=== PATIENT | female | born 1960 | race Two or more races ===

== ENCOUNTER 2022-11-09 12:25 | Emergency (ER) | payer SELFPAY ==
[2022-11-09 12:33] VITALS: BP 125/82; PULSE 79; RESP 18; TEMP 36.7; O2SAT 99; BMI 29.5
== END 2022-11-09 15:06 | disposition left against medical advice (07) ==
PROVIDERS: Emergency Provider Emergency Medicine
DX: Z53.21 Procedure and treatment not carried out due to patient leaving prior to being seen by health care provider (principal)

== ENCOUNTER 2023-01-05 09:31 | Outpatient (OUT) | payer SELFPAY ==
[2023-01-05 09:48] LABS: Basophils Percent Auto 0.3 % (0.2-2.0); Eosinophils Percent Auto 0.9 % (0.9-7.0); Hematocrit 44.8 % (36.0-48.0); Hemoglobin 13.8 g/dL (12.0-16.0); Immature Granulocytes Abs Auto 0.01 10^3/uL (0.00-0.03); Immature Granulocytes Pct Auto 0.3 % (0.0-0.5); Lymphocytes Absolute Auto 1.6 10^3/uL (1.2-3.8); Lymphocytes Percent Auto 45.7 % (20.5-60.0); Mean Corpuscular HGB Conc 30.8 g/dL (29.9-35.2); Mean Corpuscular Hemoglobin 26.2 pg (26.7-34.0); Mean Platelet Volume 10.4 fL (9.5-13.5); Monocytes Absolute Auto 0.3 10^3/uL (0.3-0.8); Monocytes Percent Auto 7.6 % (1.7-12.0); Neutrophils Absolute Auto 1.5 10^3/uL (1.4-6.5); Neutrophils Percent Auto 45.2 % (43.0-75.0); Platelet Count 183 10^3/uL (150-450); Red Blood Count 5.27 10^6/uL (4.20-5.40); White Blood Count 3.4 10^3/uL (4.0-11.0)
[2023-01-05 10:10] LABS: Estimated Average Glucose 134 mg/dL; Glycohemoglobin A1C 6.3 % (4.5-6.2)
[2023-01-05 10:51] LABS: Chol HDL Ratio 5.4; Cholesterol 279 mg/dL (<=200); HDL Cholesterol 52 mg/dL (40-60); Thyroid Stimulating Hormone 1.843 uIU/mL (0.358-3.740); Triglycerides 229 mg/dL (<=150); VLDL CHOLESTEROL 45.8 mg/dL
== END 2023-01-05 09:32 | disposition home or self-care (01) ==
LOC: LAB 09:32
PROVIDERS: PCP Internal Medicine; Visit Provider Internal Medicine
DX: R53.83 Other fatigue (principal); F41.1 Generalized anxiety disorder; Z87.898 Personal history of other specified conditions; Z13.220 Encounter for screening for lipoid disorders
CPT/HCPCS: 36415; 80061; 83036; 84443; 85025

== ENCOUNTER 2024-08-23 21:43 | Emergency (ER) | payer SELFPAY ==
--- OUTSIDE RECORDS SUMMARY | 2024-08-15 11:30 | XMS_ITS | Encounter Summary ---
Author Organization [facility] Address [address] [place] [address] Care Team Providers Care Legal Summer Intern Name Role Phone Shae Ford NP Unavailable [phone] Oliver Mcghee MD Primary Care Provider [phone] Citlaly Arellano MA Unavailable [phone] Reason for Visit * Reason Comments Diabetes Encounter Details Date Type Department Care Team (Late st Contact Info) Description 08/15/2024 11:30 AM EDT Office Visit [facility] [address] [place] [address] Lola Babin NP [address] [place] [id number] 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 disease, without long-term current use of insulin (HCC) (Primary Dx); Hyperlipidemia, unspecified ; Generalized anxiety disorder ; Anxiety and depression Social History Tobacco Use Types Packs/Day Years Used Date Smoking Tobacco: Never Smokeless Tobacco: Never Alcohol Use Standard Drinks/Week Comments Not Currently 0 (1 standard drink = 0.6 oz pur e alcohol) Comments No Sex and Gender Information Value Date Recorded Sex Assigned at Not on file Legal Sex Female 4:40 PM EDT Gender Identity Not on file Sexual Orientation Not on file documented as of this encounter Last Filed Vital Signs Vital Sign Reading Time Taken Comments Blood Pressure 102/84 08/15/2024 11:35 AM EDT Pulse 74 08/15/2024 11:35 AM EDT Temperature 36.4 C (97.5 F) 08/15/2024 11:35 AM EDT Respiratory Rate 18 08/15/2024 11:35 AM EDT Oxygen Saturation 96% 08/15/2024 11:35 AM EDT Inhaled Oxygen Concentration - - Weight 79 kg (174 lb 3.2 oz) 08/15/2024 11:35 AM EDT Height - - Body Mass Index 30.86 01/31/2024 3:02 PM EST documented in this encounter Patient Instructions * Patient Instructions* Lola Babin NP - 08/15/2024 11:30 AM EDT Please get labs completed: you can go to [facility], ask for the direct access testing: you pay burciaga 85.00 documented in this encounter Progress Notes * Lola Babin NP - 08/15/2024 1:05 PM EDTAssociated Problem(s): Anxiety and depression Current meds: klonopin, sertraline OARRS reviewed, will trial a decrease klonopin to 45 tabs daily Fu in 3 months * Lola Babin NP - 08/15/2024 1:04 PM EDTAssociated Problem(s): 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 disease, without long-term current use of insulin (HCC) Check blood sugars daily, notify if <70 or >200. Take medications (pills or insulin) as directed. Monitor for s/s of hypoglycemia (sweaty, dizziness, nausea, vomiting, or shakiness). Watch for increase in thirst, urination, or appetite. Inspect feet frequently monitoring for open wounds , andalso recommend yearly eye exam. Pt should attempt to remain as physically active as chronic conditions allow, as well as trying to follow a diet low in carbohydrates, and simple sugars. Current meds: metformin, statin A1c 7.6% 08/15/24 * Lola Babin NP - 08/15/2024 11:30 AM EDT Images from the original note were not included. Kathy Schroeder is a 64 y.o. 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 She has type 2 diabetes mellitus. Her disease coursehas been stable. Hypoglycemia symptoms include nervousness/anxiousness. Pertinent negatives for hypoglycemia include no dizziness, headaches, seizures or tremors. Associated symptoms include polyuria. Pertinent negatives for diabetes include no chest pain, no polydipsia and no polyphagia. There areno hypoglycemic complications. Symptoms are stable. Pertinent negatives for diabetic complications include no CVA, heart disease, nephropathy or peripheral neuropathy. Risk factors for coronary artery disease include diabetes mellitus, obesity and sedentary lifestyle. She is compliant with treatment most of the time. An NESTOR inhibitor/angiotensin II receptor adan is not being taken. Eye exam isnot current. Anxiety Presents for follow-up visit. Symptoms include excessive worry and nervous/anxious behavior. Patient reports no chest pain, depressed mood, dizziness, insomnia, irritability, nausea, palpitations, shortness of breath or suicidal ideas. The severity of symptoms is mild. Compliance with medications is 76-100%. SUBJECTIVE: MEDICATIONS: Current Outpatient Medications Medication Instructions atorvastatin (LIPITOR) 20 mg, Oral, Nightly clonazePAM (KLONOPIN) 1 mg, Oral, 2 times daily PRN fluticasone (Flonase) 50 MCG/ACT nasal spray 1 spray, Each Nostril, Daily, Shake gently. Before first use, prime pump. After use, clean tip and replace cap. metFORMIN XR (GLUCOPHAGE-XR) 500 mg, Oral, 2 times daily before meals, Do not crush, chew, or split. pantoprazole (PROTONIX) 40 mg, Oral, Daily before breakfast, Do not crush, chew, or split. propranolol (INDERAL) 40 mg, Oral, 2 times daily sertraline (ZOLOFT) 100 mg, Oral, Daily SUMAtriptan (IMITREX) 100 mg, Oral, Once as needed, Take 1 pill at onset of migraine headache, repeat in 2 hours if needed. No more than 2 pills in 24 hours. No more than twice a week topiramate (TOPAMAX) 100 mg, Oral, Every 12 hours ALLERGIES: No Known Allergies REVIEW OF SYMPTOMS: Review of Systems Constitutional: Negative for appetite change, chills, fever and irritability. HENT: Negative for congestion, ear pain and sore throat. Eyes: Negative for pain, discharge, redness and visual disturbance. Respiratory: Negative for cough, shortness of breath and wheezing. Cardiovascular: Negative for chest pain, palpitations and leg swelling. Gastrointestinal: Negative for abdominal pain, blood in stool, constipation, diarrhea, nausea and vomiting. Genitourinary: Negative for difficulty urinating, dysuria and frequency. Musculoskeletal: Negative for arthralgias, back pain, joint swelling and myalgias. Skin: Negative for rash and wound. Neurological: Negative for dizziness, tremors, seizures, syncope and headaches. Psychiatric/Behavioral: Negative for behavioral problems, self-injury and suicidal ideas. The patient is nervous/anxious. The patient does not have insomnia. Hematological: Does not bruise/bleed easily. Endocrine: Positive for polyuria. Negative for polydipsia and polyphagia. Allergic/Immunologic: Negative for environmental allergies and food allergies. PAST MEDICAL HISTORY Past Medical History: Diagnosis Date Anxiety and depression Fatigue ROBE (generalized anxiety disorder) GERD (gastroesophageal reflux disease) Heartburn History of prediabetes Labial cyst Migraine with aura Migraines History reviewed. No pertinent surgical history. family history includes Diabetes in her mother. OBJECTIVE: Visit Vitals BP 102/84 (BP Location: Left arm, Patient Position: Sitting, BP Cuff Size: Adult long) Pulse 74 Temp 97.5 ??F (Temporal) Resp 18 Wt 174 lb 3.2 oz SpO2 96% BMI 30.86 kg/m?? OB Status No Periods Smoking Status Never BSA 1.87 m?? Physical Exam Vitals and nursing note reviewed. Constitutional: General: She is not in acute distress. Appearance: Normal appearance. HENT: Head: Normocephalic and atraumatic. Right Ear: External ear normal. Left Ear: External ear normal. Nose: Nose normal. Mouth/Throat: Mouth: Mucous membranes are moist. Eyes: Extraocular Movements: Extraocular movements intact. Conjunctiva/sclera: Conjunctivae normal. Neck: Vascular: No carotid bruit. Cardiovascular: Rate and Rhythm: Normal rate and regular rhythm. Pulses: Normal pulses. Heart sounds: Normal heart sounds. Pulmonary: Effort: Pulmonary effort is normal. Breath sounds: Normal breath sounds. No wheezing or rhonchi. Abdominal: General: Bowel sounds are normal. There is no distension. Palpations: Abdomen is soft. There is no mass. Tenderness: There is no abdominal tenderness. Musculoskeletal: General: Normal range of motion. Cervical back: Normal range of motion and neck supple. Right lower leg: No edema. Left lower leg: No edema. Skin: General: Skin is warm and dry. Capillary Refill: Capillary refill takes 2 to 3 seconds. Findings: No rash. Neurological: General: No focal deficit present. Mental Status: She is alert and oriented to person, place, and time. Psychiatric: Mood and Affect: Mood normal. Behavior: Behavior normal. Thought Content: Thought content normal. Judgment: Judgment normal. ASSESSMENT AND PLAN: Follow up in about 3 months (around 11/15/2024) for Recheck. Problem List Items Addressed This Visit Anxiety and depression Current meds: klonopin, sertraline OARRS reviewed, will trial a decrease klonopin to 45 tabs daily Fu in 3 months Relevant Medications clonazePAM (KlonoPIN) 1 MG tablet 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 disease, without long-term current use of insulin ([facility]) Check blood sugars daily, notify if <70 or >200. Take medications (pills or insulin) as directed. Monitor for s/s of hypoglycemia (sweaty, dizziness, nausea, vomiting, or shakiness). Watch for increase in thirst, urination, or appetite. Inspect feet frequently monitoring for open wounds , andalso recommend yearly eye exam. Pt should attempt to remain as physically active as chronic conditions allow, as well as trying to follow a diet low in carbohydrates, and simple sugars. Current meds: metformin, statin A1c 7.6% 08/15/24 Relevant Medications metFORMIN XR (Glucophage-XR) 500 MG 24 hr tablet Other Relevant Orders POCT glycosylated hemoglobin (Hb A1C) docked device (Completed) Other Visit Diagnoses Hyperlipidemia, unspecified Relevant Medications atorvastatin (Lipitor) 20 MG tablet Generalized anxiety disorder Relevant Medications sertraline (Zoloft) 100 MG tablet documented in this encounter Plan of Treatment Upcoming Encounters Date Type Department Care Team (Late st Contact Info) Description 11/13/2024 1:00 PM EDT Office Visit [facility] [address] [place] [address] Lola Babin NP [address] [place] [address] documented as of this encounter Procedures Procedure Name Priority Date/Time Associated Diagnosis Comments POCT GLYCOSYLATED HEMOGLOBIN (HGB A1C) Routine 08/15/2024 12:14 PM EDT 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 disease, without long-term current use of insulin (HCC) documented in this encounter Results * (ABNORMAL) POCT glycosylated hemoglobin (Hb A1C) docked device (08/15/2024 12:14 PM EDT) Hemoglobin A1C 7.6 Blood Venous blood specimen / Unknown 08/15/2024 12:14 PM EDT us Lola Babin NP POINT OF CARE TEST ENTER/EDIT O RDERABLES Final Result documented in this encounter Visit Diagnoses Diagnosis 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 disease, without long-term current use of insulin (HCC)- Primary Hyperlipidemia, unspecified Generalized anxiety disorder Generalized anxiety disorder Anxiety and depression documented in this encounter Care Teams Legal Summer Intern Relationship Specialty Start Date End Date Oliver Mcghee MD [address] [place] [address] PCP - General Family Medicine 12/23/23 Shae Ford NP Nurse Practitioner Family Medicine 11/02/23 Citlaly Arellano, JESI [address] [place] [address] Family Medicine 05/23/24 documented as of this encounter
[2024-08-23 21:58] VITALS: BP 139/89; PULSE 71; TEMP 37.1; O2SAT 95; BMI 29.3
[2024-08-23] MEDS: FLUORESCEIN SODIUM 1 MG STRIP OP (22:07)
[2024-08-23] MEDS: TETRACAINE HCL 0.5% OP SOL 80 DROP/4 ML BOTTLE OP (22:08)
--- NOTE | 2024-08-23 22:09 | ED.EYEPROB1 ---
HPI - Eye Problem General Chief complaint: Eye Problems Stated complaint: RT EYE DISCHARGE AND PAIN Time Seen by Provider: 08/23/24 21:50 Source: patient Mode of arrival: walk-in Limitations: language barrier History of Present Illness HPI Narrative: cc -right eye redness and eyelid swelling The patient does not speak Bengali and therefore we used the spout liner to speak Turkish so I communicated with this patient, review HPI, prior medical history, medications and allergies. Nurse was present for this. The patient presents with approximately 1 week of discomfort in the right eye with a sensation as if there is something in there that began about 6 or 7 days ago. No visual change but she does have some pain in that eye. She does have some tearing and some eye redness. There is swelling of the upper lower right eyelid and she notes some crusting or matting in the morning when she wakes. No systemic symptoms such as fever or vomiting. She does not wear contact lenses Related Data Allergies Allergy/AdvReac Type Severity Reaction Status Date / Time No Known Drug Allergies Allergy Verified 08/23/24 21:56 PFSH PFSH Social History Little interest or pleasure in doing things: not at all Feeling down, depressed, or hopeless: not at all Exam Narrative Exam Narrative: General: The patient appears well and in no apparent distress. Patient is resting comfortably on cart. Skin: Warm, dry, no pallor noted. Head: Normocephalic, atraumatic Neck: Supple, trachea mid-line, no tenderness, no lymphadenopathy Eye: Normal extraocular motion without associated pain. Pupils equal, round and reactive to light. Conjunctival injection noted on the right eye. Mild swelling of the right upper and lower eyelid. Patient's upper eyelid was everted - no evidence of foreign body. No foreign body found on the surface of the cornea or in the conjunctivae. The patient had TETRACAINE applied to the right eye with fluorescein dye instilled afterward. Exam with Wood's lamp showed no uptake at the cornea. No evidence of hyphema, dendritic lesion, corneal ulcerations, preseptal cellulitis or orbital cellulitis. Ears, Nose, Mouth, and Throat: oral mucosa is moist Respiratory: Patient is in no distress Neurological: A&O x4, normal speech Psychiatric: Cooperative and interactive. Constitutional Vital Signs, click to edit/add: Last Vital Signs Temp 98.8 F 08/23/24 21:58 Pulse 71 07/02/25 21:58 Resp 18 08/23/24 21:58 BP 139/89 08/23/24 21:58 Pulse Ox 95 08/23/24 21:58 O2 Del Method Room Air 08/23/24 21:58 Course Vital Signs Vital signs: Vital Signs Temperature 98.8 F 08/23/24 21:58 Pulse Rate 71 08/23/24 21:58 Respiratory Rate 18 08/23/24 21:58 Blood Pressure 139/89 08/23/24 21:58 Pulse Oximetry 95 08/23/24 21:58 Oxygen Delivery Method Room Air 08/23/24 21:58 Temperature 98.8 F 08/23/24 21:58 Pulse Rate 71 08/23/24 21:58 Respiratory Rate 18 08/23/24 21:58 Blood Pressure 139/89 08/23/24 21:58 Pulse Oximetry 95 08/23/24 21:58 Oxygen Delivery Method Room Air 08/23/24 21:58 MDM - Eye Problem MDM Narrative Medical decision making narrative: No fluorescein uptake noted on Klein lamp examination. Eye was flushed and additional tetracaine was applied. She was ordered to receive a dose of ofloxacin with a bottle to be given to her to take to use at home-recommended doses 1 drop to the right eye 4 times a day for 1 week. She was given follow-up information for local concrete technician. ED return if she worsens Electrical Engineering Professor was used to obtain the history, performed the physical examination, explained the diagnosis, explained the treatment including follow-up and proper dosing of the ofloxacin Discharge Plan Discharge Chief Complaint: Eye Problems Clinical Impression: Bacterial conjunctivitis Patient Disposition: Home, Self-Care Time of Disposition Decision: 22:07 Print Language: Bengali Instructions: Conjunctivitis (ED) Referrals: [facility] BEY [Physician, Optometry] - 1 week
--- OUTSIDE RECORDS SUMMARY | 2024-08-23 22:09 | XMS_ITS | Encounter Summary ---
Author Organization [facility] Address [address] [place] [address] Care Team Providers Care Research Assistant Member Name Role Phone Shaikh AMELIE Tavera Primary Care Provider [phone] Oliver Mcghee MD Primary Care Provider [phone] Shae Ford PRODUCT DEVELOPMENT Unavailable [phone] Unallocated, [facility]oms Provider Primary Care Provi kadeem Oliver Mcghee MD Primary Care Provider [phone] Citlaly Arellano MA Unavailable [phone] Encounter Details Date Type Department Care Team (Late Contact Info) Description 09/01/2023 Orders Only [facility] [address] [place] [address] Shaikh Tavera MD [address] [place] [address] Social History Tobacco Use Types Packs/Day Years Used Date Smoking Tobacco: Never Smokeless Tobacco: Never Alcohol Use Standard Drinks/Week Comments Not Currently 0 (1 standard drink = 0.6 oz pur e alcohol) Comments Unknown Sex and Gender Information Value Date Recorded Sex Assigned at Not on file Legal Sex Female 4:40 PM EDT Gender Identity Not on file Sexual Orientation Not on file documented as of this encounter Plan of Treatment Upcoming Encounters Date Type Department Care Team (Late Contact Info) Description 11/13/2024 1:00 PM EDT Office Visit [facility] [address] [place] [address] Lola Babin NP [address] [place] [address] documented as of this encounter Visit Diagnoses Not on filedocumented in this encounter Care Teams Research Assistant Member Relationship Specialty Start Date End Date Shaikh Tavera MD PCP - General Internal Medicine 11/22/22 11/01/23 Oliver Mcghee MD [address] [place] [address] PCP - General Family Medicine 11/02/23 12/13/23 Unallocated, Bruce Stevens MD [address] [place] [address] PCP - General Family Medicine 12/14/23 12/22/23 Oliver Mcghee MD [address] [place] [address] PCP - General Family Medicine 12/23/23 Shae Ford NP [address] [place] [address] Nurse Practitioner Family Medicine 11/02/23 Citlaly Arellano MA [address] [place] [address] Family Medicine 05/23/24 documented as of this encounter
--- OUTSIDE RECORDS SUMMARY | 2024-08-23 22:09 | XMS_ITS | Encounter Summary ---
Author Organization [facility] Address [address] [place] [address] Care Team Providers Care Professor Of Mechanical Engineering Name Role Phone Shae Ford NP Unavailable [phone] Oliver Mcghee MD Primary Care Provider [phone] Citlaly Arellano MA Unavailable [phone] Encounter Details Date Type Department Care Team (Late st Contact Info) Description 08/17/2024 Patient Outreach [facility] [address] [place] [address] Citlaly Arellano MA [address] [place] [address] Social History Tobacco Use Types Packs/Day Years [...] on file documented as of this encounter Progress Notes * Citlaly Arellano MA - 08/17/2024 11:12 AM EDT Rn Intake received a call from Floridalma at [facility]. Updating us that the patient has either rescheduled orno showed her appt with Gynecology office three times. The first time they went there (patient and spouse) they cancelled the appt as they thought she was going there for a mammogram. The second appt, they rescheduled to 07/24 and then no-showed that appt. She said the patient did complete the mammogram though. She isn't sure where the confusion is so she is going to reach back out to spouse since pt does nothave a phone and doesn't speak palauan. She will update office again if needed. Rn Intake thanked caller for update and will forward so PCP is aware. documented in this encounter Plan of Treatment Upcoming Encounters Date Type Department Care Team (Late st Contact Info) Description 11/13/2024 1:00 PM EDT Office Visit [facility] [address] [place] [address] Lola Babin NP [address] [place] [address] documented as of this encounter Visit Diagnoses Diagnosis 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 disease, without long-term current use of insulin (HCC)- Primary Hyperlipidemia, unspecified hyperlipidemia type Generalized anxiety disorder Generalized anxiety disorder documented in this encounter Care Teams Professor Of Mechanical Engineering Relationship Specialty Start Date End Date Oliver Mcghee MD [address] [place] [address] PCP - General Family Medicine 12/23/23 Shae Ford NP Nurse Practitioner Family Medicine 11/02/23 Citlaly Arellano MA [address] [place] [address] Family Medicine 05/23/24 documented as of this encounter
--- OUTSIDE RECORDS SUMMARY | 2024-08-23 22:09 | XMS_ITS | Encounter Summary ---
Author Organization [facility] Address [address] [place] [address] Care Team Providers Care Wet Room Worker Name Role Phone Shaikh AMELIE Tavera Primary Care Provider [phone] Oliver Mcghee MD Primary Care Provider [phone] Shae Ford NP Unavailable [phone] Unallocated, [facility]oms Provider Primary Care Provi kadeem Oliver Mcghee MD Primary Care Provider [phone] Citlaly Arellano MA Unavailable [phone] Reason for Visit * Reason Comments Med Refill Encounter Details Date Type Department Care Team (Late st Contact Info) Description 02/23/2023 Refill [facility] [address] [place] [address] Shaikh Tavera MD [address] [place] [address] Hyperlipidemia, unspecified ; Migraine with aura, not intractable, without status migrainosus Social History Tobacco Use Types Packs/Day Years Used Date Smoking Tobacco: Never Assessed Comments Unknown Sex and Gender Information Value Date Recorded Sex Assigned at Not on file Legal Sex Female 4:40 PM EDT Gender Identity Not on file Sexual Orientation Not on file documented as of this encounter Miscellaneous Notes * Telephone Encounter - Shaikh Ayse MD - 02/23/2023 3:09 PM EST Approving, but needs appt for additional refills. documented in this encounter Plan of Treatment Upcoming Encounters Date Type Department Care Team (Late st Contact Info) Description 11/13/2024 1:00 PM EDT Office Visit [facility] [address] [place] [address] Lola Babin NP [address] [place] [address] documented as of this encounter Visit Diagnoses Diagnosis Hyperlipidemia, unspecified Migraine with aura, not intractable, without status migrainosus documented in this encounter Care Teams Wet Room Worker Relationship Specialty Start Date End Date Shaikh Tavera MD PCP - General Internal Medicine 11/22/22 11/01/23 Oliver Mcghee MD [address] [place] [address] PCP - General Family Medicine 11/02/23 12/13/23 Unallocated, Bruce Stevens MD [address] [place] [address] PCP - General Family Medicine 12/14/23 12/22/23 Oliver Mcghee MD [address] [place] [address] PCP - General Family Medicine 12/23/23 Shae Ford NP [address] [place] [address] Nurse Practitioner Family Medicine 11/02/23 Citlaly Arellano, JESI [address] [place] [address] Family Medicine 05/23/24 documented as of this encounter
--- OUTSIDE RECORDS SUMMARY | 2024-08-23 22:09 | XMS_ITS ---
Author Organization [facility] Address [address] [place] [address] Care Team Providers Care Manager Flight Name Role Phone Shae Ford NP Unavailable [phone] Oliver Mcghee MD Primary Care Provider [phone] Citlaly Arellano MA Unavailable [phone] Chronic Care Management (CCM) Status:Enrolled (Active) Start date:05/22/2024 Enrollment date:05/23/2024 Overview Please assess for Care Management needs. 05/23/24, 11:32 AM - Citlaly Arellano MA- Patient gives verbal consent to be enrolled in CCM Program and understands there could be a bill for this service. Case Team Name Relationship Phone Citlaly Arellano MA(Responsible Staff) [phone] Continued Care and Services Coordination
--- OUTSIDE RECORDS SUMMARY | 2024-08-23 22:09 | XMS_ITS | Clinical Summary ---
Author Organization [facility] Address [address] [place] [address] Care Team Providers Care Inspector Barrel Name Role Phone Shae Ford VALVE PIPE IRRIGATOR Unavailable [phone] Oliver Mcghee MD Primary Care Provider [phone] Citlaly Arellano MA Unavailable [phone] Allergies No known active allergies Medications fluticasone (Flonase) 50 MCG/ACT nasal sprayIndicatio ns:Seasonal allergies Administer 1 spray into each nostril Daily Shake gently. Before first use, prime pump. After use, clean tip and replace cap. 16 g 2 12/06/19 24 Active propranolol (Inderal) 40 MG tabletIndicati ons:Migraine with aura and without status migrainosus, not intractable Take 1 tablet (40 mg) by mouth in the morning and 1 tablet (40 mg) before bedtime. 180 tablet 1 03/01/19 25 Active pantoprazole (ProtoNix) 40 MG EC tabletIndicati ons:Gastroesop hageal reflux disease without esophagitis Take 1 tablet (40 mg) by mouth in the morning. Take before meals. Do not crush, chew, or split.. 90 tablet 1 03/01/19 25 Active SUMAtriptan (Imitrex) 100 MG tabletIndicati ons:Migraine with aura and without status migrainosus, not intractable Take 1 tablet (100 mg) by mouth 1 (one) time if needed for migraine Take 1 pill at onset of migraine headache, repeat in 2 hours if needed. No more than 2 pills in 24 hours. No more than twice a week 9 tablet 1 06/12/19 25 Active topiramate (Topamax) 100 MG tabletIndicati ons:Migraine with aura, not intractable, without status migrainosus Take 1 tablet (100 mg) by mouth every 12 (twelve) hours 180 tablet 1 06/29/19 25 025 Active atorvastatin (Lipitor) 20 MG tabletIndicati ons:Hyperlipid emia, unspecified Take 1 tablet (20 mg) by mouth at bedtime 90 tablet 08/16/19 25 025 Active sertraline (Zoloft) 100 MG tabletIndicati ons:Generalize d anxiety disorder Take 1 tablet (100 mg) by mouth Daily 90 tablet 08/16/19 25 025 Active clonazePAM (KlonoPIN) 1 MG tabletIndicati ons:Anxiety and depression Take 1 tablet (1 mg) by mouth 2 (two) times a day as needed for anxiety 45 tablet 1 08/16/19 25 025 Active metFORMIN XR (Glucophage-XR ) 500 MG 24 hr tabletIndicati ons: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 disease, without long-term current use of insulin (HCC) Take 1 tablet (500 mg) by mouth in the morning and 1 tablet (500 mg) in the evening. Take before meals. Do not crush, chew, or split. 180 tablet 08/16/19 25 025 Active metFORMIN XR (Glucophage-XR ) 500 MG 24 hr tabletIndicati ons: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 disease, without long-term current use of insulin (HCC) Take 1 tablet (500 mg) by mouth in the evening. Take with meals Do not crush, chew, or split. 30 tablet 01/31/20 025 Discontinued(Re order) atorvastatin (Lipitor) 20 MG tabletIndicati ons:Hyperlipid emia, unspecified Take 1 tablet (20 mg) by mouth Daily 90 tablet 1 05/03/19 025 Discontinued(Re order) clonazePAM (KlonoPIN) 1 MG tabletIndicati ons:Anxiety and depression Take 1 tablet (1 mg) by mouth 2 (two) times a day as needed for anxiety 60 tablet 1 06/01/19 25 025 Discontinued sertraline (Zoloft) 100 MG tabletIndicati ons:Generalize d anxiety disorder Take 1 tablet (100 mg) by mouth Daily 90 tablet 06/29/19 25 025 Discontinued(Re order) clonazePAM (KlonoPIN) 1 MG tabletIndicati ons:Anxiety and depression Take 1 tablet (1 mg) by mouth 2 (two) times a day as needed for anxiety 60 tablet 07/31/19 25 025 Discontinued(Re order) Active Problems Problem Noted Date Diagnosed Date Encounter for screening mamm ogram for malignant neoplasm of breast 05/22/2024 Assessment & Plan (05/22/2024 5:21 PM EDT): Perhaps can be done with [facility] Colon cancer screening 05/22/2024 Assessment & Plan (05/22/2024 5:21 PM EDT): Colon cancer screening options were discussed with patient, as well as why colon cancer screening is indicated. Recommend colonoscopy: concern over the cost of this Pelvic pain 05/22/2024 Assessment & Plan (05/22/2024 5:19 PM EDT): Hx of possible ovary mass when was in [place], does have some intermittent pain Will check pelvic US, but does question about the cost, pt does not have insurance She is also in need of cervical cancer screening I did speak to my pt respiratory care specialist Citlaly to see if SS can be of help We can also go through [facility] for evaluation for both mammogram and cervical cancer screening Type 2 diabetes mellitus wit h stage 1 chronic kidney disease, without long-term current use of insulin 01/31/2024 Assessment & Plan (08/15/2024 1:04 PM EDT): Check blood sugars daily, notify if <70 or >200. Take medications (pills or insulin) as directed. Monitor for s/s of hypoglycemia (sweaty, dizziness, nausea, vomiting, or shakiness). Watch for increase in thirst, urination, or appetite. Inspect feet frequently monitoring for open wounds , and also recommend yearly eye exam. Pt should attempt to remain as physically active as chronic conditions allow, as well as trying to follow a diet low in carbohydrates, and simple sugars. Current meds: metformin, statin A1c 7.6% 08/15/24 Assessment & Plan (05/22/2024 5:20 PM EDT): Check blood sugars daily, notify if <70 or >200. Take medications (pills or insulin) as directed. Monitor for s/s of hypoglycemia (sweaty, dizziness, nausea, vomiting, or shakiness). Watch for increase in thirst, urination, or appetite. Inspect feet frequently monitoring for open wounds , and also recommend yearly eye exam. Pt should attempt to remain as physically active as chronic conditions allow, as well as trying to follow a diet low in carbohydrates, and simple sugars. Current meds: metformin, statin a1c Assessment & Plan (01/31/2024 3:34 PM EST): Most recent labs: hemoglobin A1C 7.8% Checks BG levels using: Does not check BG at home Will add Jardiance 10mg today Recheck A1C in 3 months No episode of hypoglycemia No medication adverse effects reported by the patient. Patient educated on lifestyle modifications, dietary restrictions, signs and symptoms of hypoglycemia/hyperglycemia and importance of eating regular consistent meals. Stressed upon importance of checking blood glucose at home and bring blood glucose log to appointments. All questions, concerns answered and addressed. Encouraged to call office if persistent hypoglycemia/hyperglycemia on home glucose monitoring noted. Anemia 01/31/2024 Assessment & Plan (01/31/2024 3:34 PM EST): Will order Anemia panel today. Recheck labs in 3 months. Adult wellness visit 12/06/2023 Assessment & Plan (12/06/2023 4:08 PM EDT): I have reviewed Ht/Wt/BMI, I have reviewed recommended vaccines for patient's age, as well as all recommended screenings I have reviewed available care everywhere notes as well. I have recommended eating a balanced diet, as well as activity as chronic conditions allow It is recommended that the patient have a yearly eye exam, as well as twice a year dental exams Fu in this office for wellness on a yearly basis Diet: Eat three meals per day. Breakfast, lunch, and dinner. Avoid snacking. Avoid eating after 5/6 pm. Daily protein GOAL 35% of your intake; 30g per meal. Daily calorie GOAL 1,800-2,000 per day. Consider tracking your food intake on MyFtinessPal or LoseIt Water: Increase water intake; GOAL 64-80oz of water per day. Exercise: Increase activity. GOAL 30 minutes, 5 days per week. START SLOW. Start with 5 minutes, 5 days per week. Then increase to 10 days, 5 days per week. Continue to increase until you reach the goal. Increase steps; GOAL 10,000 steps per day. Be sure to get adequate sleep; GOAL 6-8 hours of sleep per night. Anxiety and depression 03/22/2023 Assessment & Plan (08/15/2024 1:05 PM EDT): Current meds: klonopin, sertraline OARRS reviewed, will trial a decrease klonopin to 45 tabs daily Fu in 3 months Assessment & Plan (05/22/2024 2:52 PM EDT): Current meds: klonopin, sertraline PHQ 9=16 ROBE 7=13 GERD (gastroesophageal reflux disease) Assessment & Plan (05/22/2024 7:01 AM EDT): Recommendations: freq small meals, nothing to eat or drink at least 2 hours prior to bed, limit caffeine, alcohol, as well as spicy foods Meds to limit or avoid if possible: NSAIDS Elevate HOB if possible Current meds: pantoprazole Migraine with aura 03/22/2023 Assessment & Plan (05/22/2024 7:04 AM EDT): Current therapy : topirimate, inderal Assessment & Plan (12/06/2023 6:54 PM EDT): Currently taking Inderal, Topamax and Zoloft. Uses imitrex as needed; Reports migraines have improved significantly since last visit while taking the Topamax. Pt reports she is also taking Magnesium supplements daily to aide with her migraine control. She feels this regimen is working very well. Beena reports she did see a neurologist when she lived in [place], but has not since she moved to the [facility]. Does not have health insurance at this time, wants to hold off on neurology referral until she has insurance. Continue current regimen.. Assessment & Plan (03/22/2023 2:06 PM EST): Patient on Inderal, Topamax and Zoloft. Uses imitrex as needed She ends up using all of her Imitrex before a month is up. She is using daily OTC medication from [facility] too - she is unsure of what. I suspect she has medication overuse PEREZ and I tried to explain to her that this is more likely the reason for her daily headaches. She unfortunately does not have health insurance and there are limited options because of health care cost. Otherwise, a CGRP would have been a good option for her migraine PEREZ. Hyperlipidemia 03/22/2023 Assessment & Plan (05/22/2024 7:03 AM EDT): Statin therapy Check labs yearly and prn dose changes Assessment & Plan (03/22/2023 2:07 PM EST): Patient was started on Lipitor 20 mg. Need to repeat lipid panel to make sure its working for her. Acute bilateral low back pain without sciatica 0 03/22/2023 Assessment & Plan (03/22/2023 2:13 PM EST): Low back pain, intermittent, worse with bending and lifting. No trauma. Gradually improving. Manage conservatively. Heating pad, stretching exercises, tylenol or motrin as needed for pain Fatigue Assessment & Plan (12/06/2023 6:48 PM EDT): Ongoing for some time. Did not have wellness labs completed in the past. Pt given information on Critical Access Testing to have wellness lab completed. Resolved Problems Problem Noted Date Diagnosed Date Resolved Date History of prediabetes 03/22/202301/30 Assessment & Plan (03/22/2023 2:00 PM EST): A1C 6.3 01/14 --> on metformin. C/w same. Encouraged lifestyle measures and modifications. Encounters Date Type Department Care Team Description 08/17/2024 Patient Outreach [place] [id number] [place] [address] Citlaly Arellano MA 08/15/2024 11:30 AM EDT Office Visit [facility] [address] [place] [address] Lola Babin NP 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 disease, without long-term current use of insulin (HCC) (Primary Dx); Hyperlipidemia, unspecified ; Generalized anxiety disorder ; Anxiety and depression 08/15/2024 Bamboo flowsheet [facility] [address] [place] [address] Lola Babin NP 07/28/2024 Refill [facility] [address] [place] [address] Lola Babin NP Anxiety and depression 07/24/2024 Patient Outreach [place] [id number] [place] [address] Citlaly Arellano MA 06/28/2024 Refill [facility] [address] [place] [address] Oliver Mcghee MD Generalized anxiety disorder ; Migraine with aura, not intractable, without status migrainosus 06/08/2024 Refill [facility] [address] [place] [address] Oliver Mcghee MD Migraine with aura and without status migrainosus, not intractable 06/08/2024 Patient Outreach [place] [id number] [place] [address] Citlaly Arellano MA 06/01/2024 Patient Outreach [place] [id number] [place] [address] Citlaly Arellano MA 05/31/2024 Refill [facility] [address] [place] [address] Lola Babin NP Anxiety and depression ; Generalized anxiety disorder 05/30/2024 Patient Outreach [facility] [place] [place] [address] Citlaly Arellano MA from Last 3 Months Immunizations Immunization Administration Dates Next Due Influenza, injectable, quadrivalent, preservativ e free 01/29/2020 Family History Medical History Relation Name Comments Diabetes Mother Relation Name Status Comments Mother Social History Tobacco Use Types Packs/Day Years Used Date Smoking Tobacco: Never Smokeless Tobacco: Never Tobacco Cessation:Counseling Given: Not Answered Alcohol Use Standard Drinks/Week Comments Not Currently 0 (1 standard drink = 0.6 oz pur e alcohol) Comments No Sex and Gender Information Value Date Recorded Sex Assigned at Not on file Legal Sex Female 4:40 PM EDT Gender Identity Not on file Sexual Orientation Not on file Last Filed Vital Signs Vital Sign Reading Time Taken Comments Blood Pressure 102/84 08/15/2024 11:35 AM EDT Pulse 74 08/15/2024 11:35 AM EDT Temperature 36.4 C (97.5 F) 08/15/2024 11:35 AM EDT Respiratory Rate 18 08/15/2024 11:35 AM EDT Oxygen Saturation 96% 08/15/2024 11:35 AM EDT Inhaled Oxygen Concentration - - Weight 79 kg (174 lb 3.2 oz) 08/15/2024 11:35 AM EDT Height 160 cm (5' 3 ) 01/31/2024 3:02 PM EST Body Mass Index 30.86 01/31/2024 3:02 PM EST Plan of Treatment Upcoming Encounters Date Type Department Care Team (Late st Contact Info) Description 11/13/2024 1:00 PM EDT [facility] [address] [place] [address] Lola Babin NP [address] [place] [address] Health Maintenance Due Date Last Done Comments CT Colonography 1962 Colonoscopy 1962 Colorectal Cancer Screening 1962 FIT-DNA 1962 FIT 1962 FOBT 1962 Sigmoidoscopy 1962 Diabetes: Retinopathy Screening 1972 Diabetes: Urine Protein Screening 1981 Pap Smear 1983 Cervical Cancer Screening 1992 HPV/Cotest 1992 Influenza Vaccine (Season Ended) 2024 01/29/20 20 Diabetes: Hemoglobin A1C 11/15/2024 08/15/2024 Mammogram 07/24/2025 07/24/2024 Procedures Procedure Name Priority Date/Time Associated Diagnosis Comments POCT GLYCOSYLATED HEMOGLOBIN (HGB A1C) Routine 08/15/2024 12:14 PM EDT 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 disease, without long-term current use of insulin (HCC) from Last 3 Months Results * (ABNORMAL) POCT glycosylated hemoglobin (Hb A1C) docked device (08/15/2024 12:14 PM EDT) Hemoglobin A1C 7.6 Blood Venous blood specimen / Unknown 08/15/2024 12:14 PM EDT us Lola Babin NP POINT OF CARE TEST ENTER/EDIT O RDERABLES Final Result from Last 3 Months Care Teams Inspector Barrel Relationship Specialty Start Date End Date Oliver Mcghee MD [address] [place] [address] PCP - General Family Medicine 12/23/23 Shae Ford NP Nurse Practitioner Family Medicine 11/02/23 Citlaly Arellano MA [address] [place] [address] Family Medicine 05/23/24
--- OUTSIDE RECORDS SUMMARY | 2024-08-23 22:09 | XMS_ITS | Encounter Summary ---
Author Organization [facility] Address [address] [place] [address] Care Team Providers Care Junior Systems Engineer Name Role Phone Shaikh AMELIE Tavera Primary Care Provider [phone] Oliver Mcghee MD Primary Care Provider [phone] Shae Ford NP Unavailable [phone] Unallocated, [facility] Provider Primary Care Provi kadeem Oliver Mcghee MD Primary Care Provider [phone] Citlaly Arellano MA Unavailable [phone] Reason for Visit * Reason Comments Med Refill Encounter Details Date Type Department Care Team (Late st Contact Info) Description 03/09/2023 Refill [facility] [address] [place] [phone] Shaikh Tavera MD [address] [place] [address] Generalized anxiety disorder ; Hyperlipidemia, unspecified Social History Tobacco Use Types Packs/Day Years Used Date Smoking Tobacco: Never Assessed Comments Unknown Sex and Gender Information Value Date Recorded Sex Assigned at Not on file Legal Sex Female 4:40 PM EDT Gender Identity Not on file Sexual Orientation Not on file documented as of this encounter Miscellaneous Notes * Telephone Encounter - Shaikh Ayse MD - 03/09/2023 4:43 PM EST Approving, but needs appt for additional refills. documented in this encounter Plan of Treatment Upcoming Encounters Date Type Department Care Team (Late st Contact Info) Description 11/13/2024 1:00 PM EDT Office Visit [facility] [address] [place] [address] Lola Babin NP [address] [place] [address] documented as of this encounter Visit Diagnoses Diagnosis Generalized anxiety disorder Generalized anxiety disorder Hyperlipidemia, unspecified documented in this encounter Care Teams Junior Systems Engineer Relationship Specialty Start Date End Date Shaikh Tavera MD PCP - General Internal Medicine 11/22/22 11/01/23 Oliver Mcghee MD [address] [place] [address] PCP - General Family Medicine 11/02/23 12/13/23 Unallocated, Bruce Stevens MD [address] [place] [address] PCP - General Family Medicine 12/14/23 12/22/23 Oliver Mcghee MD [address] [place] [address] PCP - General Family Medicine 12/23/23 Shae Ford NP [address] [place] [address] Nurse Practitioner Family Medicine 11/02/23 Citlaly Arellano, JESI [address] [place] [address] Family Medicine 05/23/24 documented as of this encounter
--- OUTSIDE RECORDS SUMMARY | 2024-08-23 22:09 | XMS_ITS | Encounter Summary ---
Author Organization [facility] Address [address] [place] [address] Care Team Providers Care Quality Control Inspector Name Role Phone Shaikh AMELIE Tavera Primary Care Provider [phone] Oliver Mcghee MD Primary Care Provider [phone] Shae Ford SHIPYARD SUPERVISOR Unavailable [phone] Unallocated, [facility] Provider Primary Care Provi kadeem Oliver Mcghee MD Primary Care Provider [phone] Citlaly Arellano MA Unavailable [phone] Encounter Details Date Type Department Care Team (Late Contact Info) Description 06/28/2023 Orders Only [facility] [address] [place] [address] Shaikh Tavera MD [address] [place] [address] Social History Tobacco Use Types Packs/Day Years [...] Office Visit [facility] [address] [place] [address] Lola Babin NP [address] [place] [address] documented as of this encounter Visit Diagnoses Not on filedocumented in this encounter Care Teams Quality Control Inspector Relationship Specialty Start Date End Date Shaikh Tavera MD PCP - General Internal Medicine 11/22/22 11/01/23 Oliver Mcghee MD [address] [place] [address] PCP - General Family Medicine 11/02/23 12/13/23 Unallocated, Bruce Stevens MD [address] [place] [address] PCP - General Family Medicine 12/14/23 12/22/23 Oliver Mcghee MD [address] [place] [address] PCP - General Family Medicine 12/23/23 Shae Ford NP [address] [place] [address] Nurse Practitioner Family Medicine 11/02/23 Citlaly Arellano MA [address] [place] [address] Family Medicine 05/23/24 documented as of this encounter
--- OUTSIDE RECORDS SUMMARY | 2024-08-23 22:09 | XMS_ITS | Encounter Summary ---
Author Organization [facility] Address [address] [facility] [place] [address] Care Team Providers Care Paper Reclaiming Machine Operator Name Role Phone Shae Ford NP Unavailable [phone] Oliver Mcghee MD Primary Care Provider [phone] Citlaly Arellano MA Unavailable [phone] Encounter Details Date Type Department Care Team ([facility] Contact Info) Description 08/15/2024 Bamboo flowsheet [facility] [address] [place] [address] Lola Babin NP [address] [place] [address] Social History Tobacco Use Types Packs/Day Years [...] Upcoming Encounters Date Type Department Care Team ([facility] Contact Info) Description 11/13/2024 1:00 PM EDT Office Visit [facility] [address] [place] [address] Lola Babin, GILBERT [address] [place] [address] documented as of this encounter Visit Diagnoses Not on filedocumented in this encounter Care Teams Paper Reclaiming Machine Operator Relationship Specialty Start Date End Date Oliver Mcghee MD [address] [place] [address] PCP - General Family Medicine 12/23/23 Shae Ford NP Nurse Practitioner Family Medicine 11/02/23 Citlaly Arellano [place] [address] [place] [address] Family Medicine 05/23/24 documented as of this encounter
--- OUTSIDE RECORDS SUMMARY | 2024-08-23 22:09 | XMS_ITS | CCD ---
Author Organization [facility] Inform ion [facility] Care Team Providers Care Mobile Home Set Up Person Name Role Phone Maggie, DO Chandler Attending Unavailable Crooks, DO Chandler Primary Care Unavailable Crooks, DO Chandler Attending Unavailable Crooks, Ramesh Primary Care Unavailable Crooks, DO Chandler Attending Unavailable Crooks, Ramesh Primary Care Unavailable Crooks, Ramesh Attending Unavailable Maggie, DO Chandler Primary Care Unavailable Danish Dumont Attending Unavailable NO FAMILY, PHYSICIAN Primary Care Unavailable Danish Dumont Admitting Unavailable Bullimore, Evette E Admitting Unavailable Bullimore, Evette E Attending Unavailable NO FAMILY, PHYSICIAN Primary Care Unavailable NO FAMILY, PHYSICIAN Primary Care Provider Unava ilable Bullimore, BROKER-BC Evette E Emergency Provider [phone] COREY Dumont Emergency Provider [phone] Oliver Mcghee MD Primary Care Provider Logan PLATING ENGINEER, Shae Unavailable Caronlocattomás KINSEY, Rosalindas Provider Primary Care Provi kadeem Oliver Mcghee MD Primary Care Provider [phone] Shaikh Tavera MD Primary Care Provider [phone] Logan PLATING ENGINEER, Shae Unavailable [phone] Citlaly Arellano MA Unavailable Unavailable Citlaly Arellano MA Unavailable LOLA BABIN Attending Unavailable LOLA BABIN Attending Unavailable SHAE FORD Attending Unavailabl e SHAE FORD Attending Unavailabl e Medications Current Medications Medication Drug Class(es) Dates Sig (Normalized) Sig (Original) atorvastatin 20 mg oral tablet (20 sources) HMG-CoA Reductase Inhibitor Start: 05-02-2024 End: 11-13-2024 take 1 tablet by mouth at bedtime atorvastatin (Lipitor) 20 MG tablet Indications: Hyperlipidemia, unspecified Take 1 tablet (20 mg) by mouth at bedtime 90 tablet 08/15/2024 11/13/2024 Active Start: 03-22-2023 End: 04-29-2024 take 1 tablet by mouth once daily atorvastatin (Lipitor) 20 MG tablet Indications: Hyperlipidemia, unspecified (CMS/HCC) Take 1 tablet (20 mg) by mouth Daily 90 tablet 1 11/01/2023 04/29/2024 Active clonazePAM 1 mg oral tablet (20 sources) Benzodiazepine Start: 07-30-2024 End: 09-14-2024 take 1 tablet by mouth twice daily as needed for anxiety clonazePAM (KlonoPIN) 1 MG tablet Indications: Anxiety and depression Take 1 tablet (1 mg) by mouth 2 (two) times a day as needed for anxiety 45 tablet 1 08/15/2024 09/14/2024 Active Start: 05-02-2024 End: 06-30-2024 take 1 tablet by mouth twice daily as needed for anxiety clonazePAM (KlonoPIN) 1 MG tablet Indications: Anxiety and depression (CMS/HCC) Take 1 tablet (1 mg) by mouth 2 (two) times a day as needed for anxiety 60 tablet 1 05/31/2024 06/30/2024 Active Start: 09-16-2023 End: 12-14-2023 take 1 tablet by mouth twice daily as needed for anxiety clonazePAM (KlonoPIN) 1 MG tablet Indications: Anxiety and depression (CMS/HCC) Take 1 tablet (1 mg) by mouth 2 (two) times a day as needed for anxiety 60 tablet 12/14/2023 Active Start: 11-02-2022 take 1 tablet by anais twice daily Clonazepam (Klonopin) 1 mg tablet Active 1 MG PO Twice daily 04 09November 11, 2022 12:00am fluticasone propionate 0.05 mg/actuat metered dose nasal spray (20 sources) Corticosteroid Start: 12-06-2023 take 1 spray(s) nasal route once daily fluticasone (Flonase) 50 MCG/ACT nasal spray Indications: Seasonal allergies Administer 1 spray into each nostril Daily Shake gently. Before first use, prime pump. After use, clean tip and replace cap. 16 g 2 12/06/2023 Active End: 12-06-2023 take 1 spray(s) nasal route in the morning fluticasone (Flonase) 50 MCG/ACT nasal spray Administer 1 spray into each nostril in the morning. Shake gently. Before first use, prime pump. After use, clean tip and replace cap.. 12/06/2023 Discontinued (Reorder) 24 hr metFORMIN hydrochloride 500 mg extended release oral tablet (20 sources) Biguanide Start: 01-31-2024 End: 01-30-2025 take 1 tablet by mouth every twenty-four hours in the morning metFORMIN XR (Glucophage-XR) 500 MG 24 hr tablet Indications: 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 disease, without long-term current use of insulin (HCC) Take 1 tablet (500 mg) by mouth in the morning and 1 tablet (500 mg) in the evening. Take before meals. Do not crush, chew, or split. 180 tablet 08/15/2024 11/13/2024 Active Start: 03-22-2023 End: 06-20-2024 take 1 tablet by mouth once daily metFORMIN (Glucophage) 500 MG tablet Indications: History of prediabetes Take 1 tablet (500 mg) by mouth Daily 90 tablet 1 12/23/2023 01/31/2024 Discontinued (Dose adjustment) pantoprazole 40 mg delayed release oral tablet (20 sources) Proton Pump Inhibitor Start: 09-01-2023 End: 03-01-2024 take 1 tablet by mouth before mealtime pantoprazole (ProtoNix) 40 MG EC tablet Indications: Gastroesophageal reflux disease without esophagitis Take 1 tablet (40 mg) by mouth in the morning. Take before meals. Do not crush, chew, or split.. 90 tablet 1 03/01/2024 Active propranolol hydrochloride 40 mg oral tablet (20 sources) beta-Adrenergic Aroldo Start: 09-01-2023 End: 03-01-2024 take 1 tablet by mouth in the morning propranolol (Inderal) 40 MG tablet Indications: Migraine with aura and without status migrainosus, not intractable Take 1 tablet (40 mg) by mouth in the morning and 1 tablet (40 mg) before bedtime. 180 tablet 1 03/01/2024 Active sertraline 100 mg oral tablet (20 sources) Serotonin Reuptake Inhibitor Start: 03-22-2023 End: 11-13-2024 take 1 tablet by mouth once daily sertraline (Zoloft) 100 MG tablet Indications: Generalized anxiety disorder Take 1 tablet (100 mg) by mouth Daily 90 tablet 08/15/2024 11/13/2024 Active SUMAtriptan 100 mg oral tablet (20 sources) Serotonin-1b and Serotonin-1d Receptor Agonist Start: 06-11-2024 End: 07-11-2024 SUMAtriptan (Imitrex) 100 MG tablet Indications: Migraine with aura and without status migrainosus, not intractable Take 1 tablet (100 mg) by mouth 1 (one) time if needed for migraine Take 1 pill at onset of migraine headache, repeat in 2 hours if needed. No more than 2 pills in 24 hours. No more than twice a week 9 tablet 1 06/11/2024 Active Start: 03-22-2023 End: 06-08-2024 take 1 tablet by mouth once SUMAtriptan (Imitrex) 100 MG tablet Indications: Migraine with aura and without status migrainosus, not intractable (CMS/HCC) Take 1 tablet (100 mg) by mouth 1 (one) time if needed for migraine 9 tablet 2 12/06/2023 06/08/2024 Discontinued (Reorder) topiramate 100 mg oral tablet (20 sources) Start: 2024 End: 09-26-2024 take 1 tablet by mouth once topiramate (Topamax) 100 MG tablet Indications: Migraine with aura, not intractable, without status migrainosus Take 1 tablet (100 mg) by mouth every 12 (twelve) hours 180 tablet 1 06/28/2024 09/26/2024 Active Start: 09-21-2023 End: 2024 take 1 tablet by mouth every twelve hours topiramate (Topamax) 100 MG tablet Indications: Migraine with aura, not intractable, without status migrainosus (CMS/HCC) TAKE 1 TABLET BY MOUTH EVERY 12 HOURS 180 tablet 1 09/21/2023 2024 Discontinued (Reorder) Start: 11-11-2022 take 100 mg by mouth twice daily Topiramate Active 100 MG PO Twice daily 28 14 Joy 20th, 2023 12:00am Completed/Discontinued Medications Medication Drug Class(es) Dates Sig (Normalized) Sig (Original) empagliflozin 10 mg oral tablet (7 sources) Sodium-Glucose Cotransporter 2 Inhibitor Start: 01-31-2024 End: 01-30-2025 empagliflozin (Jardiance) 10 MG Indications: 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 disease, without long-term current use of insulin ([facility]) Take 1 tablet (10 mg) by mouth Daily 30 tablet 01/31/2024 05/22/2024 Discontinued (Therapy completed) Problems Active Problems Problem Classification Problem Date Documented Date Episodic/Chronic Abdominal pain (11 sources) Pain in pelvis; Translations: [Pelvic and perineal pain] Onset: 05-22-2024 05-22-2024 Episodic Administrative/socia l admission (3 sources) Encounter for issue of repeat prescription; Translations: [Repeated prescription] Onset: 11-02-2022 11-11-2022 Episodic Anxiety disorders (20 sources) Anxiety disorder, unspecified; Translations: [Anxiety] Onset: 11-02-2022 11-11-2022 Chronic Chronic kidney disease (2 sources) Chronic kidney disease stage 3A ; Translations: [Chronic kidney disease, stage 3a (HCC) ([facility])] 05-22-2024 Chronic Diabetes mellitus with complications (20 sources) Type 2 diabetes mellitus; Translations: [Type 2 diabetes mellitus with diabetic chronic kidney disease] Onset: 01-31-2024 01-31-2024 Chronic Disorders of lipid metabolism (20 sources) Hyperlipidemia; Translations: [Hyperlipidemia, unspecified] Onset: 03-22-2023 03-22-2023 Chronic Esophageal disorders (20 sources) Gastroesophageal reflux disease; Translations: [Gastro-esophageal reflux disease without esophagitis] Onset: 03-22-2023 03-22-2023 Chronic Headache; including migraine (20 sources) Migraine with aura; Translations: [Migraine with aura, not intractable, without status migrainosus] Onset: 03-22-2023 03-22-2023 Chronic Malaise and fatigue (20 sources) Fatigue; Translations: [Other fatigue] 12-06-2023 Episodic Other screening for suspected conditions (not mental disorders or infectious disease) (20 sources) Patient encounter status; Translations: [Encounter for screening mammogram for malignant neoplasm of breast] Onset: 05-22-2024 05-22-2024 Episodic Other upper respiratory disease (2 sources) Seasonal allergy; Translations: [Other seasonal allergic rhinitis] 12-06-2023 Chronic Past or Other Problems Problem Classification Problem Date Documented Da te Episodic/Chronic Deficiency and other anemia (16 sources) Anemia; Translations: [Anemia, unspecified] Onset: 01-31-2024 01-31-2024 Episodic Residual codes; unclassified (20 sources) H/O: endocrine disorder; Translations: [Personal history of other specified conditions] Onset: 03-22-2023 Resolved: 01-31-2024 03-22-2023 Episodic Spondylosis; intervertebral disc disorders; other back problems (20 sources) Acute low back pain; Translations: [Acute bilateral low back pain without sciatica] Onset: 03-22-2023 03-22-2023 Episodic Results Test Name Value Interpretation Reference Range Facility HbA1c (Bld) [Mass fraction]O rdered By: Roopafelix Velarde on 08-15-2024 Interpretation and review of laboratory results Abnormal [facility] - Hematology and Cell countsOrdered By: Roopa Velarde on 08-15-2024 HbA1c (Bld) [Mass fraction] 7.6 % [facility] CBC AUTO DIFFon 01-17-20 BASOPHILS ABSOLUTE AUTO 0 [facility] Basophils/100 WBC (Bld) 0.3 % 0.2 - 2.0 % [facility] Eosinophils/100 WBC (Bld) 1.5 % 0.9 - 7.0 % [facility] Erythrocyte distribution width (RBC) [Ratio] 14.7 % 11.0 - 15.0 % [facility] Hematocrit (Bld) [Volume fraction] 43 % 36.0 - 48.0 % [facility] Hem[facility] (Bld) [Mass/Vol] 13.5 g/dL 12.0 - 16.0 g/dL [facility] IMMATURE GRANULOCYTES ABS AUTO 0.01 [facility] Immature granulocytes/100 WBC (Bld) 0.3 % 0.0 - 0.5 % [facility] Interpretation and review of laboratory results Abnormal [facility] LYMPHOCYTES ABSOLUTE AUTO 1.9 [facility] Lymphocytes/100 WBC (Bld) 48 % 20.5 - 60.0 % [facility] MCH (RBC) [Entitic mass] 26.4 pg Low 26.7 - 34.0 pg [facility] MCHC (RBC) [Mass/Vol] 31.4 g/dL 29.9 - 35.2 g/dL [facility] MCV (RBC) [Entitic vol] 84 fL 81.0 - 99.0 fL [facility] MONOCYTES ABSOLUTE AUTO 0.4 [facility] Monocytes/100 WBC (Bld) 8.9 % 1.7 - 12.0 % [facility] NEUTROPHILS ABSOLUTE AUTO 1.6 [facility] Neutrophils/100 WBC (Bld) 41 % Low 43.0 - 75.0 % [facility] Platelet mean volume (Bld) [Entitic vol] 11.2 fL 9.5 - 13.5 fL [facility] EO # [facility].1 [facility] NRBC 0 [facility] PLT 198 [facility] RBC 5.12 [facility] WBC 3.9 Low [facility]ini [facility] Noteon 01-20-2022 Family Medicine Office/Clinic Note Chief Complaint anxiety f/u History of Present Illness Patient seen for above. I last saw her 09/09/2021. is present for visit. The conversation between the patient myself occurred utilizing Google translate conversation mode between Congolese and Bruneian and went well. Anxiety with panic: On clonazepam. Using it as directed. 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 She takes it regularly. She never takes anymore. She does not want to stop it. It does work for her. Depression: On sertraline. Needs refill doing okay Hypertension: On propranolol, well-controlled Heartburn: On Protonix. If she does not take it she gets heartburn. Headaches: Still having frontal headaches. Still has not gotten CT of her sinuses. On Topamax and Flonase. Seasonal allergies: On Flonase. Symptoms worse as it is gotten colder. Physical Exam Vitals & Measurements HR: 63 (Peripheral) BP: 108/70 SpO2: 99 HT: 154 cm WT: 74.5 kg WT: 74.5 kg (Dosing) BMI: 31.41 General: Alert and pleasant. NAD wearing facial protection Heart: RRR without murmur Lungs: CTA in all ziegler Psych: Affect and mood appropriate. Additional Vitals BP Position/Location: Sitting, Left arm Assessment/Plan 1. Anxiety Chronic and stable on medications. Long-term risk-benefit side effects of benzodiazepine use were discussed. Ordered: clonazePAM, 1 tabs, Oral, BID, # 60 tabs, 3 Refill(s), Pharmacy: [facility] [place] [id number], 01/30/22 Earliest Fill Date: 2. Benign essential hypertension Chronic and stable 3. Migraine Chronic and stable 4. Seasonal allergies Chronic and stable 5. Depression Chronic and stable Orders: fluticasone nasal, 1 sprays, Nasal, BID, # 16 g, 5 Refill(s), Pharmacy: [facility] [id number] metFORMIN, 1 tabs, Oral, Daily, # 90 tabs, 3 Refill(s), Pharmacy: [facility] [id number] pantoprazole, 1 tabs, Oral, Daily, # 30 tabs, 5 Refill(s), Pharmacy: [facility] [id number] propranolol, 1 tabs, Oral, BID, # 180 tabs, 1 Refill(s), Pharmacy: [facility] [id number] sertraline, 1 tabs, Oral, Daily, # 90 tabs, 1 Refill(s), Pharmacy: [facility] [id number] topiramate, 1 tabs, Oral, BID, # 180 tabs, 1 Refill(s), Pharmacy: [facility] [id number] Time Spent with the Patient I have personally spent 44 minutes on this date, directly related to today's patient visit, including pre and post visit work, for this date of service. Time listed does not include time spent on separately billable services. Provider Comments All questions answered Medication sent in Follow-up in May before running out of clonazepam or sooner told me he is going to be losing insurance for her. I suggested using good Rx. He will let me know if I can help him Wish them both a happy holiday This note was created with the assistance of a speech recognition program. While intending to generate a timely document that accurately reflects the content of the visit, no guarantee can be provided that every grammatical or spelling mistake has been or will be identified or corrected. Please contact [facility] with any questions Problem List/Past Medical History Ongoing Anxiety Benign essential hypertension Chronic sinusitis Colloid thyroid nodule Depression Fatigue Heartburn Menopausal hot flushes Migraine Nodule of right lobe of thyroid gland Panic disorder [episodic paroxysmal anxiety] Seasonal allergies Sinus congestion Type 2 diabetes mellitus Uterine fibroid Weight gain Historical Anemia Procedure/Surgical History section Tonsillectomy Medications clonazePAM 1 mg oral tablet, 1 mg= 1 tabs, Oral, BID, 3 refills Flonase 50 mcg/inh nasal spray, 1 sprays, Nasal, BID, 5 refills KlonoPIN 1 mg oral tablet, 1 mg= 1 tabs, Oral, BID MetFORMIN (Eqv-Glucophage XR) 500 mg oral tablet, extended release, 500 mg= 1 tabs, Oral, Daily, 3 refills propranolol 40 mg oral tablet, 40 mg= 1 tabs, Oral, BID, 1 refills Protonix 40 mg oral delayed release tablet, 40 mg= 1 tabs, Oral, Daily, 5 refills Topamax 100 mg oral tablet, 100 mg= 1 tabs, Oral, BID, 1 refills Zoloft 50 mg oral tablet, 50 mg= 1 tabs, Oral, Daily, 1 refills Allergies No Known Allergies Social History Alcohol Never Substance Abuse Denies All Tobacco Never (less than 100 in lifetime) Use:. Immunizations Vaccine Date Status SARS-CoV-2 (COVID-19) mRNA-1273 vaccine 08/15/2020 Recorded SARS-CoV-2 (COVID-19) mRNA-1273 vaccine 07/18/2020 Recorded influenza virus vaccine, inactivated 01/29/2020 Given Electronically signed by Ramesh Serrano DO 03/29/22 13:14 EST Electronically signed by Ruba Chaves 01/19/2022 13:44 EST Normal [facility] Family Medicine Office/Clini c Nilda 09-09-2021 Family Medicine Office/Clinic Note Chief Complaint med check/refill History of Present Illness Patient seen for above. I last saw her 03/12/2021. 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 At least monthly. She is on Topamax and takes it regularly. Anxiety with panic: On clonazepam. Using it as directed. Just filled it on September 05. Low back pain: Says it is better with standing and worse when she lays down. She has not had any falls. She says there is a history for many years. It seems to be getting better Chronic sinus issues: Still having sinus congestion she has seasonal allergies. She tells me she is using her Flonase. Physical Exam Vitals & Measurements HR: 61 (Peripheral) BP: 100/60 SpO2: 98 HT: 154 cm WT: 74 kg WT: 74 kg (Dosing) BMI: 31.2 03/06/2021: Pathology report: Right thyroid nodule: Benign features of colloid nodule 02/10/2021: TSH 0.9 Free T4 0.9 01/09/2021: CT neck with contrast: 2.2 x 2.1 x 3.3 cm enhancing right thyroid lobe nodule. 10/31/2020: Ultrasound neck: (FH) 1: Complicated cystic lesion measuring 0.5 cm left supraclavicular region recommended contrast-enhanced CT of neck 2: 3 cm solid isoechoic TR 3 nodule right thyroid lobe measuring 3 x 2.1 x 2.5 cm Vitals as noted General: Alert and pleasant. NAD wearing facial protection Chest: Quiet symmetric respirations Cardiac: RRR without murmur, S1 S2 present Lungs: CTA anterior and posterior Abdomen: Round soft BSx4, no palpatory tenderness, no masses palpated Vascular: No lower extremity edema. MS: Moving all Four extremities. GAIT: Normal lumbar spine: Lumbar paraspinal tenderness noted which is mild, full range of motion at the waist with flexion and extension. Straight leg raise is negative. Strength testing in lower extremities is equal and symmetric. Neurologic: No focal or lateralizing deficits. No tremor noted Psych: Affect and mood appropriate. Additional Vitals BP Position/Location: Sitting, Left arm Assessment/Plan 1. Anxiety Chronic and stable. Clonazepam sent in to be filled in September with 3 refills. R/B/SE discussed 2. Panic disorder [episodic paroxysmal anxiety] See problem #1 3. Low back pain No focal deficits continue to monitor 4. Chronic sinusitis Chronic and stable on Flonase Time Spent with the Patient I have personally spent 32 minutes on this date, directly related to today's patient visit, including pre and post visit work, for this date of service. Time listed does not include time spent on separately billable services. 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 Clonazepam was sent in to be filled in September with refills Follow-up end of December prior to running out of her clonazepam or sooner if needed Needs [id number] A1c and probably blood work at that visit This note was created with the assistance of a speech recognition program. While intending to generate a timely document that accurately reflects the content of the visit, no guarantee can be provided that every grammatical or spelling mistake has been or will be identified or corrected. Please contact [facility] with any questions Problem List/Past Medical History Ongoing Anxiety Benign essential hypertension Chronic sinusitis Colloid thyroid nodule Depression Fatigue Heartburn Menopausal hot flushes Migraine Nodule of right lobe of thyroid gland Panic disorder [episodic paroxysmal anxiety] Seasonal allergies Sinus congestion Type 2 diabetes mellitus Uterine fibroid Weight gain Historical Anemia Procedure/Surgical History section Tonsillectomy Medications Flonase 50 mcg/inh nasal spray, 1 sprays, Nasal, BID, 5 refills KlonoPIN 1 mg oral tablet, 1 mg= 1 tabs, Oral, BID MetFORMIN (Eqv-Glucophage XR) 500 mg oral tablet, extended release, 500 mg= 1 tabs, Oral, Daily, 3 refills propranolol 40 mg oral tablet, 40 mg= 1 tabs, Oral, BID, 1 refills Protonix 40 mg oral delayed release tablet, 40 mg= 1 tabs, Oral, Daily, 1 refills Topamax 100 mg oral tablet, 100 mg= 1 tabs, Oral, BID, 1 refills Zoloft 50 mg oral tablet, 50 mg= 1 tabs, Oral, Daily, 1 refills Allergies No Known Allergies Social History Alcohol Never Substance Abuse Denies All Tobacco Never (less than 100 in lifetime) Use:. Immunizations Vaccine Date Status SARS-CoV-2 (COVID-19) mRNA-1273 vaccine 08/15/2020 Recorded SARS-CoV-2 (COVID-19) mRNA-1273 vaccine 07/18/2020 Recorded influenza virus vaccine, inactivated 01/29/2020 Given Electronically signed by Ramesh Serrano DO 01/04/22 17:08 EST Electronically signed by Ruba Chaves 09/05/2021 14:24 EDT Normal [facility] Vital Signs Date Time Vital Sign Value Performing Clinician Anisha ghosh 08-15-2024 11:35-0400 Body mass index (BMI) [Ratio] 30.86 kg/m2 Lola Aichdoriez PLATING ENGINEER Work Phone: [facility] 08-15-2024 11:35-0400 Body temperature 97.5 [degF] Lola Aichholz PLATING ENGINEER Work Phone: [facility] 08-15-2024 11:35-0400 Body weight 79.02 kg Lola Aichholz PLATING ENGINEER Work Phone: [facility] 08-15-2024 11:35-0400 Diastolic blood pressure 84 mm[Hg] Lola Aichholz PLATING ENGINEER Work Phone: [facility] 08-15-2024 11:35-0400 Heart rate 74 /min Lola Aichholz PLATING ENGINEER Work Phone: [facility] 08-15-2024 11:35-0400 Respiratory rate 18 /min Lola Aichholz PLATING ENGINEER Work Phone: [facility] 08-15-2024 11:35-0400 SaO2% (BldA) [Mass fraction] 96 % Lola Aichholz PLATING ENGINEER Work Phone: [facility] 08-15-2024 11:35-0400 Systolic blood pressure 102 mm[Hg] Lola Aichholz PLATING ENGINEER Work Phone: [facility] 05-22-2024 14:19-0400 Body mass index (BMI) [Ratio] 31.18 kg/m2 Lola Babin PLATING ENGINEER Work Phone: [facility] 05-22-2024 14:19-0400 Body temperature 98.49 [degF] Lola Babin PLATING ENGINEER Work Phone: [facility] 05-22-2024 14:19-0400 Body weight 79.83 kg Lola Babin PLATING ENGINEER Work Phone: [facility] 05-22-2024 14:19-0400 Diastolic blood pressure 88 mm[Hg] Lola Babin PLATING ENGINEER Work Phone: [facility] 05-22-2024 14:19-0400 Heart rate 78 /min Lola Jallohz PLATING ENGINEER Work Phone: [facility] 05-22-2024 14:19-0400 Respiratory rate 19 /min Lola Babin PLATING ENGINEER Work Phone: [facility] 05-22-2024 14:19-0400 SaO2% (BldA) [Mass fraction] 97 % Lola Babin PLATING ENGINEER Work Phone: [facility] 05-22-2024 14:19-0400 Systolic blood pressure 108 mm[Hg] Lola Babin PLATING ENGINEER Work Phone: [facility] 01-31-2024 15:02-0500 Body height 160 cm Shae Mcgowanpatrick PLATING ENGINEER Work Phone: [facility] 01-31-2024 15:02-0500 Body mass index (BMI) [Ratio] 31.46 kg/m2 Shae Ford PLATING ENGINEER Work Phone: [facility] 01-31-2024 15:02-0500 Body temperature 98.1 [degF] Shaedoretha McgowanFord PLATING ENGINEER Work Phone: [facility] 01-31-2024 15:02-0500 Body weight 80.56 kg Shae Ford PLATING ENGINEER Work Phone: [facility] 01-31-2024 15:02-0500 Diastolic blood pressure 68 mm[Hg] Shae Ford PLATING ENGINEER Work Phone: [facility] 01-31-2024 15:02-0500 Heart rate 75 /min Shae Ford PLATING ENGINEER Work Phone: [facility] 01-31-2024 15:02-0500 Respiratory rate 16 /min Shae Ford PLATING ENGINEER Work Phone: [facility] 01-31-2024 15:02-0500 SaO2% (BldA) [Mass fraction] 98 % Shae Ford PLATING ENGINEER Work Phone: [facility] 01-31-2024 15:02-0500 Systolic blood pressure 102 mm[Hg] Shae Ford PLATING ENGINEER Work Phone: [facility] 12-06-2023 15:17-0400 Body mass index (BMI) [Ratio] 31.14 kg/m2 Shae Ford PLATING ENGINEER Work Phone: [facility] 12-06-2023 15:17-0400 Body temperature 97.3 [degF] Shae Ford PLATING ENGINEER Work Phone: [facility] 12-06-2023 15:17-0400 Body weight 79.74 kg Shae Ford PLATING ENGINEER Work Phone: [facility] 12-06-2023 15:17-0400 Diastolic blood pressure 64 mm[Hg] Shae Ford PLATING ENGINEER Work Phone: [facility] 12-06-2023 15:17-0400 Heart rate 68 /min Shae Ford PLATING ENGINEER Work Phone: [facility] 12-06-2023 15:17-0400 SaO2% (BldA) [Mass fraction] 98 % Shae Ford PLATING ENGINEER Work Phone: [facility] 12-06-2023 15:17-0400 Systolic blood pressure 118 mm[Hg] Shae Mcgowanpatrick PLATING ENGINEER Work Phone: [facility] 11-11-2022 22:48-0400 Body temperature 97.9 [degF] PHYSICIAN NO [facility] 11-11-2022 22:48-0400 Diastolic blood pressure 86 mm[Hg] PHYSICIAN NO [facility] 11-11-2022 22:48-0400 Heart rate 57 /min PHYSICIAN NO [facility] 11-11-2022 22:48-0400 Respiratory rate 16 /min PHYSICIAN NO [facility] 11-11-2022 22:48-0400 SaO2% (BldA) [Mass fraction] 96 % PHYSICIAN NO [facility] 11-11-2022 22:48-0400 Systolic blood pressure 140 mm[Hg] PHYSICIAN NO [facility] 11-11-2022 21:28-0400 Body height 154.94 cm PHYSICIAN NO [facility] 11-11-2022 21:28-0400 Body weight 75.3 kg PHYSICIAN NO [facility] 11-02-2022 17:48-0400 Body height 159.99 cm PHYSICIAN NO [facility] 11-02-2022 17:48-0400 Body temperature 99.5 [degF] PHYSICIAN NO [facility] 11-02-2022 17:48-0400 Body weight 74.95 kg PHYSICIAN NO [facility] 11-02-2022 17:48-0400 Diastolic blood pressure 77 mm[Hg] PHYSICIAN NO [facility] 11-02-2022 17:48-0400 Heart rate 60 /min PHYSICIAN NO [facility] 11-02-2022 17:48-0400 Respiratory rate 16 /min PHYSICIAN NO [facility] 11-02-2022 17:48-0400 SaO2% (BldA) [Mass fraction] 97 % PHYSICIAN NO [facility] 11-02-2022 17:48-0400 Systolic blood pressure 122 mm[Hg] PHYSICIAN NO [facility] Encounters Encounter Date Encounter Type Care Provider Facility Start: 08-15-2024 End: 08-15-2024 Bamboo flowsheet Lola Aichholz PLATING ENGINEER Work Phone: [facility] Start: 08-15-2024 End: 08-15-2024 Bamboo flowsheet Lola Aichholz PLATING ENGINEER Work Phone: [facility] Start: 08-15-2024 End: 08-15-2024 Office outpatient visit 25 minutes Lola Aichholz PLATING ENGINEER Work Phone: [facility] Comment on above: Type 2 diabetes adán itus with stage 1 chronic kidney disease, without long-term current use of insulin (HCC) (Primary Dx); Hyperlipidemia, unspecified ; Generalized anxiety disorder ; Anxiety and depression Start: 08-15-2024 End: 08-15-2024 ambulatory LOLA AICHHOLZ Not Available Start: 07-28-2024 End: 07-30-2024 Refill Lola Aichholz PLATING ENGINEER Work Phone: [facility] Comment on above: Anxiety and depressi on (CMS/HCC) Start: 06-28-2024 End: 06-28-2024 Refill Oliver Mcghee MD Work Phone: [facility] Comment on above: Generalized anxiety disorder (CMS/HCC); Migraine with aura, not intractable, without status migrainosus (CMS/HCC) Start: 06-08-2024 End: 06-11-2024 Refill Oliver Mcghee MD Work Phone: [facility] Comment on above: Migraine with aura a nd without status migrainosus, not intractable (CMS/HCC) Start: 05-31-2024 End: 05-31-2024 Refill Lola Aichholz PLATING ENGINEER Work Phone: [facility] Comment on above: Anxiety and depressi on (CMS/HCC); Generalized anxiety disorder (CMS/HCC) Start: 05-22-2024 End: 05-22-2024 Office outpatient visit 25 minutes Lola Babin PLATING ENGINEER Work Phone: [facility] Comment on above: Type 2 diabetes adán itus with stage 1 chronic kidney disease, without long-term current use of insulin ([facility]) (Primary Dx); Chronic kidney disease, stage 3a ([facility]) ([facility]); Type 2 diabetes mellitus with diabetic chronic kidney disease ([facility]); Gastroesophageal reflux disease without esophagitis; Anxiety and depression ([facility]); Mixed hyperlipidemia ([facility]) ; Migraine with aura and without status migrainosus, not intractable ([facility]); Encounter for screening mammogram for malignant neoplasm of breast; Colon cancer screening; Pelvic pain Start: 05-22-2024 End: 05-22-2024 ambulatory LOLA BABIN Not Available Start: 05-22-2024 End: 05-22-2024 Bamboo flowsheet Lola Babin PLATING ENGINEER Work Phone: [facility] Start: 05-22-2024 End: 05-22-2024 Bamboo flowsheet Lola Babin PLATING ENGINEER Work Phone: [facility] Start: 2024 End: 2024 Refill Shae Cazarestrick PLATING ENGINEER Work Phone: [facility] Comment on above: Migraine with aura, not intractable, without status migrainosus ([facility]) Start: 03-01-2024 End: 03-01-2024 Refill Shae Ford PLATING ENGINEER Work Phone: [facility] Comment on above: Migraine with aura a nd without status migrainosus, not intractable ([facility]); Gastroesophageal reflux disease without esophagitis Start: 01-31-2024 End: 01-31-2024 Office outpatient visit 15 minutes Shae Ford PLATING ENGINEER Work Phone: [facility] Comment on above: History of prediabet es (Primary Dx); 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 disease, without long-term current use of insulin ([facility]); Anemia, unspecified type Start: 01-31-2024 End: 01-31-2024 ambulatory SHAE CAZARESTRICK Not Available Start: 01-31-2024 End: 01-31-2024 Bamboo flowsheet Shae Cazarestrick PLATING ENGINEER Work Phone: [facility] Start: 01-31-2024 End: 01-31-2024 Bamboo flowsheet Shae Ford PLATING ENGINEER Work Phone: [facility] Start: 01-17-2024 End: 01-17-2024 Clinisync Result Encounter Generic External Data Provider [facility] External Department Unsolicited Start: 01-17-2024 End: 01-17-2024 Clinisync Result Encounter Generic External Data Provider [facility] External Department Unsolicited Start: 12-23-2023 End: 12-23-2023 Refill Shae Mosherk PLATING ENGINEER Work Phone: [facility] Comment on above: History of prediabet es Start: 12-14-2023 End: 12-14-2023 Refill Shae Mosherk PLATING ENGINEER Work Phone: [facility] Comment on above: Anxiety and depressi on (CMS/HCC) Start: 12-06-2023 End: 12-06-2023 Office outpatient visit 15 minutes Shae Ford PLATING ENGINEER Work Phone: [facility] Comment on above: Adult wellness visit (Primary Dx); Migraine with aura and without status migrainosus, not intractable (CMS/HCC); Seasonal allergies; Anxiety and depression (CMS/HCC) Start: 12-06-2023 End: 12-06-2023 ambulatory SHAE FORD Not Available Start: 12-06-2023 End: 12-06-2023 Bamboo flowsheet Shae Cazarestrick PLATING ENGINEER Work Phone: [facility] Start: 12-06-2023 End: 10-14-2024 Bamboo flowsheet Shae Finleyzpatrick PLATING ENGINEER Work Phone: [facility] Start: 12-06-2023 End: 12-06-2023 Patient encounter status Shae Finleyzpatrick PLATING ENGINEER Work Phone: [facility] Work Phone: Start: 11-24-2023 End: 11-24-2023 Refill Shae Finleyzpatrick PLATING ENGINEER Work Phone: [facility] Comment on above: Generalized anxiety disorder ([facility]/HCC) Start: 11-01-2023 End: 11-01-2023 Refill Shae Logan PLATING ENGINEER Work Phone: [facility] Comment on above: Hyperlipidemia, unsp ecified ([facility]) Start: 11-11-2022 End: 11-12-2022 Emergency department patient visit Danish Dumont Facility:[facility] Start: 11-11-2022 End: 11-11-2022 Emergency department patient visit PHYSICIAN NO [facility] Work Phone: Start: 11-02-2022 End: 11-02-2022 Emergency department patient visit Evette Trujillo Facility:[facility] Start: 11-02-2022 End: 11-02-2022 Emergency department patient visit PHYSICIAN NO [facility] Work Phone: Start: 05-27-2022 ambulatory DO Ramesh Crooks Facility :[facility] Start: 01-27-2022 ambulatory DO Ramesh Crooks Facility :[facility] Start: 01-20-2022 End: 01-21-2022 ambulatory DO Ramesh Crooks Facility:[facility] Start: 09-09-2021 End: 09-10-2021 ambulatory DO Ramesh Crooks Facility:[facility] Procedures Date Procedure Procedure Detail Performing Clinician Start: 08-15-2024 Hemoglobin glycosyla rocky a1c Lola Babin PLATING ENGINEER Work Phone: Start: 07-24-2024 Mammography Lola lofton PLATING ENGINEER Work Phone: Start: 01-17-2024 [facility] CBC AUTO DIFF Gener ic External Data Provider Plan of Treatment Date Care Activity Detail Author Start: 07-24-2025 Screening for malignant neoplasm of breast Mammogram [facility] Start: 11-15-2024 Hemoglobin A1c measurement Diabetes: Hemoglobin A1C [facility] Start: 11-13-2024 End: 11-13-2024 Patient encounter procedure 11/13/2024 1:00 PM EDT Office Visit [facility] [address] [place] [phone] Lola Babin NP [address] [place] [phone] [facility] Start: 10-23-2024 Influenza vaccination Influenza Vaccine (Season Ended) [facility] Start: 08-15-2024 End: 08-15-2024 Patient encounter procedure [facility] Comment on above: Arrived Start: 07-17-2024 Influenza vaccination Influenza Vaccine (#1) [facility] Comment on above: Postponed from 10/24/2023 (Patient Refus ed) Start: 07-10-2024 End: 07-10-2024 Patient encounter procedure 07/10/2024 10:30 AM EDT Procedure Visit [facility] [address] [place] [address] Lola Babin, GILB[place] [address] [place] [phone] [facility] Start: 07-06-2024 End: 07-06-2024 Patient encounter procedure 07/06/2024 2:00 PM EDT Office Visit [facility] [address] [place] [phone] Lola Babin NP [address] [place] [phone] [facility] Start: 05-22-2024 End: 05-22-2024 Patient encounter procedure 05/22/2024 2:20 PM EDT Office Visit [facility] [address] [place] [phone] Lola Babin NP [address] [place] [address] Gastroesophageal reflux disease without esophagitis (Primary Dx); Chronic kidney disease, stage 3a (HCC) (CMS/HCC); Type 2 diabetes mellitus with diabetic chronic kidney disease (CMS/HCC); 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 disease, without long-term current use of insulin (CMS/HCC) ; Anxiety and depression (CMS/HCC); Mixed hyperlipidemia (CMS/HCC) ; Migraine with aura and without status migrainosus, not intractable (CMS/HCC); Encounter for screening mammogram for malignant neoplasm of breast; Colon cancer screening [facility] Comment on above: Gastroesophageal reflux disease without esophagitis (Primary Dx); Chronic kidney disease, stage 3a (HCC) (CMS/HCC); Type 2 diabetes mellitus with diabetic chronic kidney disease (CMS/HCC); 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 disease, without long-term current use of insulin (CMS/HCC) ; Anxiety and depression (CMS/HCC); Mixed hyperlipidemia (CMS/HCC) ; Migraine with aura and without status migrainosus, not intractable (CMS/HCC); Encounter for screening mammogram for malignant neoplasm of breast; Colon cancer screening Start: 05-22-2024 End: 05-22-2025 CBC W Auto Differential panel - Blood CBC and differential Lab Routine Chronic kidney disease, stage 3a (HCC) (CMS/HCC) Expected: 05/22/2024 (Approximate), Expires: 05/22/2025 [facility] Work Phone: Comment on above: Expected: 05/22/2024 (Approximate), Expi res: 05/22/2025 Start: 05-22-2024 End: 05-22-2025 Comprehensive metabolic 2000 panel - Serum or Plasma Comprehensive metabolic panel Lab Routine Chronic kidney disease, stage 3a (HCC) (CMS/HCC) 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 disease, without long-term current use of insulin ([facility]) Mixed hyperlipidemia ([facility]/HCC) Expected: 05/22/2024 (Approximate), Expires: 05/22/2025 [facility] Comment on above: Expected: 05/22/2024 (Approximate), Expi res: 05/22/2025 Start: 05-22-2024 End: 05-22-2025 Hemoglobin A1c/Hemoglobin.total in Blood Hemoglobin A1c Lab Routine 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 disease, without long-term current use of insulin ([facility]/HCC) Expected: 05/22/2024 (Approximate), Expires: 05/22/2025 [facility] Comment on above: Expected: 05/22/2024 (Approximate), Expi res: 05/22/2025 Start: 05-22-2024 End: 05-22-2025 Lipid 1996 panel - Serum or Plasma Lipid panel Lab Routine Mixed hyperlipidemia ([facility]/HCC) Expected: 05/22/2024 (Approximate), Expires: 05/22/2025 [facility] Comment on above: Expected: 05/22/2024 (Approximate), Expi res: 05/22/2025 Start: 05-22-2024 End: 07-22-2025 MG Breast - bilateral Screening Bilateral screening mammogram Imaging Routine Encounter for screening mammogram for malignant neoplasm of breast Expected: 05/22/2024 (Approximate), Expires: 07/22/2025 [facility] Comment on above: Expected: 05/22/2024 (Approximate), Expi res: 07/22/2025 Start: 05-22-2024 End: 05-22-2025 Microalbumin/Creatinine panel in random Urine Microalbumin / creatinine, urine ratio Lab Routine 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 disease, without long-term current use of insulin ([facility]/HCC) Expected: 05/22/2024 (Approximate), Expires: 05/22/2025 [facility] Comment on above: Expected: 05/22/2024 (Approximate), Expi res: 05/22/2025 Start: 05-22-2024 End: 05-22-2025 Urinalysis complete panel - Urine Urinalysis with reflex microscopic (clean catch) Lab Routine 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 disease, without long-term current use of insulin ([facility]) Expected: 05/22/2024 (Approximate), Expires: 05/22/2025 [facility] Comment on above: Expected: 05/22/2024 (Approximate), Expi res: 05/22/2025 Start: 05-22-2024 End: 05-22-2025 US Pelvis transvaginal US pelvis transvaginal Imaging Routine Pelvic pain Expected: 05/22/2024 (Approximate), Expires: 05/22/2025 [facility] Comment on above: Expected: 05/22/2024 (Approximate), Expi res: 05/22/2025 Start: 05-08-2024 End: 05-08-2024 Patient encounter procedure 05/08/2024 4:00 PM EDT Office Visit [facility] [address] [place] [address] Shae Ford NP [address] [place] [address] [facility] Start: 04-30-2024 End: 01-30-2025 CBC W Auto Differential panel - Blood CBC and differential Lab Routine Anemia, unspecified type Expected: 04/30/2024 (Approximate), Expires: 01/30/2025 [facility] Comment on above: Expected: 04/30/2024 (Approximate), Expi res: 01/30/2025 Start: 04-30-2024 End: 01-30-2025 Comprehensive metabolic 2000 panel - Serum or Plasma Comprehensive metabolic panel Lab Routine 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 disease, without long-term current use of insulin ([facility]) Expected: 04/30/2024 (Approximate), Expires: 01/30/2025 [facility] Comment on above: Expected: 04/30/2024 (Approximate), Expi res: 01/30/2025 Start: 04-30-2024 End: 01-30-2025 Microalbumin/Creatinine panel in random Urine Microalbumin / creatinine urine ratio Lab Routine 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 disease, without long-term current use of insulin ([facility]/HCC) Expected: 04/30/2024 (Approximate), Expires: 01/30/2025 [facility] Work Phone: Comment on above: Expected: 04/30/2024 (Approximate), Expi res: 01/30/2025 Start: 01-31-2024 End: 01-31-2024 [facility] Comment on above: Arrived Start: 01-31-2024 End: 01-30-2025 Cobalamin (Vitamin B12) [Mass/volume] in Serum or Plasma Vitamin B12 Lab Routine Anemia, unspecified type Expected: 01/31/2024 (Approximate), Expires: 01/30/2025 [facility] Comment on above: Expected: 01/31/2024 (Approximate), Expi res: 01/30/2025 Start: 01-31-2024 End: 01-30-2025 Ferritin [Mass/volume] in Serum or Plasma Ferritin Lab Routine Anemia, unspecified type Expected: 01/31/2024 (Approximate), Expires: 01/30/2025 [facility] Comment on above: Expected: 01/31/2024 (Approximate), Expi res: 01/30/2025 Start: 01-31-2024 End: 01-30-2025 Iron + transferrin + TIBC Iron + transferrin + TIBC Lab Routine Anemia, unspecified type Expected: 01/31/2024 (Approximate), Expires: 01/30/2025 [facility] Comment on above: Expected: 01/31/2024 (Approximate), Expi res: 01/30/2025 Start: 12-06-2023 End: 12-06-2023 Patient encounter procedure [facility] Comment on above: Arrived Start: 10-24-2023 Influenza vaccination Influenza Vaccine (#1) [facility] Start: 2002 Screening for malignant neoplasm of breast Mammogram [facility] Start: 1992 Screening for malignant neoplasm of cervix [facility] Start: 1983 Screening for malignant neoplasm of cervix Pap Smear [facility] Start: 1981 Urine screening for protein Diabetes: Urine Protein Screening [facility] Start: 1972 Glaucoma screening Diabetes: Retinopathy Screening [facility] Start: 1962 Hemoglobin A1c measurement Diabetes: Hemoglobin A1C [facility] Start: 1962 Screening for malignant neoplasm of colon [facility] Patient Education Anxiety, Adult ED [facility] Work Phone: Patient referral [facility] Work Phone: Immunizations Immunization Date Immunization Notes Care Provider Fa cility 01-29-2020 influenza, injectabl e, quadrivalent, preservative free Lola Babin PLATING ENGINEER Work Phone: [facility] 01-29-2020 influenza virus vaccine, unspecified formulation Shae Ford PLATING ENGINEER Work Phone: [facility] Payers Date Payer Category Payer Self-pay 2021 Unknown 1960 Unknown [id number] [id number]. [id number] 1960 Unknown [id number] 2.16. [id number] 1960 Unknown [id number] 2.16. [id number] 1960 Unknown [id number] 2.16. [id number] Unknown [id number] [id number] Unknown [id number] [id number] Social History Date Type Detail Facility Start: 11-11-2022 End: 03-22-2023 Tobacco smoking status NHIS Never smoked tobacco (finding) [facility] Start: 1960 Sex Assigned At Female F [facility] Start: 03-22-2023 Tobacco use and exposure Smokeless tobacco non-user [facility] Start: 03-22-2023 End: 08-15-2024 Alcoholic beverage intake Ex-drinker (finding) [facility] Start: 03-22-2023 End: 08-15-[address] [facility] Start: 03-22-2023 End: 08-15-2024 Tobacco use panel [facility] Start: 1960 Sex assigned at Not on file N [facility] Clinical Notes 12-06-2023 to 08-15-2024 Lola Babin NP - 08/15/2024 1:05 PM Christine Babin NP - 08/15/2024 1:04 PM Christine Babin NP - 08/15/2024 11:30 AM EDTPatient Kayleen Babin NP - 05/22/2024 5:21 PM EDT Note Date & Type Note Facility 08-15-2024 History of Present illness Narrative Associated Problem(s): Anxiety and depression Current meds: klonopin, sertraline OARRS reviewed, will trial a decrease klonopin to 45 tabs daily Fu in 3 months Associated Problem(s): Type 2 diabetes mellitus with stage [...] Current meds: metformin, statin A1c 7.6% 08/15/24 Images from the original note were not included. Kathy Schroeder is a 64 y.o. female presents with chief complaint of Diabetes HPI: Here for 3 month check: using building insulation installer pt speaks [place]olese No further episodes of pelvic pain Cannot afford test strips Diabetes She presents for her follow-up diabetic visit. She has type 2 diabetes mellitus. Her disease course has been stable. Hypoglycemia symptoms include nervousness/anxiousness. Pertinent negatives for hypoglycemia include no dizziness, headaches, seizures or tremors. Associated symptoms include polyuria. Pertinent negatives for diabetes include no chest pain, no polydipsia and no polyphagia. There are no hypoglycemic complications. Symptoms are stable. Pertinent negatives for diabetic complications include no CVA, heart disease, nephropathy or peripheral neuropathy. Risk factors for coronary artery disease include diabetes mellitus, obesity and sedentary lifestyle. She is compliant with treatment most of the time. An NESTOR inhibitor/angiotensin II receptor aroldo is not being taken. Eye exam is not current. Anxiety Presents for follow-up visit. Symptoms [...] Size: Adult long) Pulse 74 Temp 97.5 F (Temporal) Resp 18 Wt 174 lb 3.2 oz SpO2 96% BMI 30.86 kg/m OB Status No Periods Smoking Status Never BSA 1.87 m Physical Exam Vitals and nursing note reviewed. [...] disease, without long-term current use of insulin ([facility]) Check blood sugars daily, notify if <70 [...] 100 MG tablet documented in this encounter [facility] 08-15-2024 Instructions Lola Babin NP - 08/15/2024 11:30 AM EDT Please get labs completed: you can go to [facility], ask for the direct access testing: you pay burciaga 85.00 documented in this encounter [facility] 05-22-2024 History of Present illness Narrative Associated Problem(s): Encounter for screening mammogram for malignant neoplasm of breast Perhaps can be done with [facility] Associated Problem(s): Pelvic pain Hx of possible ovary mass when was in [place], does have some intermittent pain Will check pelvic US, but does question about the cost, pt does not have insurance She is also in need of cervical cancer screening I did speak to my pt career professional Citlaly to see if SS can be of help We can also go through [facility] for evaluation for both mammogram and cervical cancer screening Pt is not taking the jardiance- cost was $600 Sugars typically ran 120-140 140 as the highest even after eating Sometimes 119 Need refills on her test strips Last migraine she had was around [place] Images from the original note were not included. Kathy Schroeder is a 64 y.o. female presents with chief complaint of No chief complaint on file. HPI: Pt is not taking the jardiance- cost was $600 Sugars typically ran 120-140 140 as the highest even after eating Sometimes 119 Need refills on her test strips Last migraine she had was around [place] Use of interpretting service for her [place] Hypertension This is a chronic problem. The current episode started more than 1 year ago. The problem is unchanged. The problem is controlled. Associated symptoms include anxiety. Pertinent negatives include no chest pain, headaches, palpitations, peripheral edema or shortness of breath. There are no associated agents to hypertension. Risk factors for coronary artery disease include obesity and sedentary lifestyle. Past treatments include beta blockers. The current treatment provides significant improvement. There are no compliance problems. Migraine This is a chronic problem. The problem occurs intermittently. The problem has been gradually improving. The pain does not radiate. Quality: burning like an egg frying on head. The pain is moderate. Associated symptoms include phonophobia, photophobia and vomiting. Pertinent negatives include no abdominal pain, back pain, coughing, dizziness, ear pain, eye pain, eye redness, fever, nausea, seizures or sore throat. Treatments tried: topirimate, and imitrex. The treatment provided significant relief. Her past medical history is significant for hypertension. Diabetes She presents for her follow-up diabetic visit. She has type 2 diabetes mellitus. Her disease course has been stable. Hypoglycemia symptoms include nervousness/anxiousness. Pertinent negatives for hypoglycemia include no dizziness, headaches, seizures or tremors. Associated symptoms include polyuria. Pertinent negatives for diabetes include no chest pain, no polydipsia and no polyphagia. There are no hypoglycemic complications. Symptoms are stable. There are no diabetic complications. Pertinent negatives for diabetic complications include no peripheral neuropathy. Risk factors for coronary artery disease include diabetes mellitus, hypertension, obesity and post-menopausal. Current diabetic treatment includes oral agent (monotherapy). SUBJECTIVE: MEDICATIONS: Current Outpatient Medications Medication Instructions atorvastatin (LIPITOR) 20 mg, Oral, Daily clonazePAM (KLONOPIN) 1 mg, Oral, 2 times daily PRN empagliflozin (JARDIANCE) 10 mg, Oral, Daily fluticasone (Flonase) 50 MCG/ACT nasal spray 1 spray, Each Nostril, Daily, Shake gently. Before first use, prime pump. After use, clean tip and replace cap. metFORMIN XR (GLUCOPHAGE-XR) 500 mg, Oral, Daily with evening meal, Do not crush, chew, or split. pantoprazole (PROTONIX) 40 mg, Oral, Daily before breakfast, Do not crush, chew, or split. propranolol (INDERAL) 40 mg, Oral, 2 times daily sertraline (ZOLOFT) 100 mg, Oral, Daily SUMAtriptan (IMITREX) 100 mg, Oral, Once as needed topiramate (TOPAMAX) 100 mg, Oral, Every 12 hours ALLERGIES: No Known Allergies REVIEW OF SYMPTOMS: Review of Systems Constitutional: Negative for appetite change, chills and fever. HENT: Negative for congestion, ear pain and sore throat. Eyes: Positive for photophobia. Negative for pain, discharge, redness and visual disturbance. Respiratory: Negative for cough, shortness of breath and wheezing. Cardiovascular: Negative for chest pain, palpitations and leg swelling. Gastrointestinal: Positive for vomiting. Negative for abdominal pain, blood in stool, constipation, diarrhea and nausea. Genitourinary: Negative for difficulty urinating, dysuria and frequency. Musculoskeletal: Negative for arthralgias, back pain, joint swelling and myalgias. Skin: Negative for rash and wound. Neurological: Negative for dizziness, tremors, seizures, syncope and headaches. Psychiatric/Behavioral: Negative for behavioral problems, self-injury and suicidal ideas. The patient is nervous/anxious. Hematological: Does not bruise/bleed easily. Endocrine: Positive for polyuria. Negative for polydipsia and polyphagia. Allergic/Immunologic: Negative for environmental allergies and food allergies. PAST MEDICAL HISTORY Past Medical History: Diagnosis Date Anxiety and depression ([facility]) Fatigue ROBE (generalized anxiety disorder) ([facility]) GERD (gastroesophageal reflux disease) Heartburn History of prediabetes Labial cyst Migraine with aura ([facility]) Migraines ([facility]) No past surgical history on file. family history includes Diabetes in her mother. OBJECTIVE: Visit Vitals BP 108/88 (BP Location: Left arm, Patient Position: Sitting, BP Cuff Size: Large adult) Pulse 78 Temp 98.5 F (Temporal) Resp 19 Wt 176 lb SpO2 97% BMI 31.18 kg/m OB Status No Periods Smoking Status Never BSA 1.88 m Physical Exam Vitals and nursing note reviewed. [...] no mass. Tenderness: There is no abdominal tenderness (LLQ tender, no rebound/guarding). Musculoskeletal: General: Normal range of motion. Cervical back: Normal range of motion and neck supple. Right lower leg: No edema. Left lower leg: No edema. Lymphadenopathy: Cervical: No cervical adenopathy. Skin: General: Skin is warm and dry. Capillary Refill: Capillary refill takes 2 to 3 seconds. Findings: No rash. Neurological: General: No focal deficit present. Mental Status: She is alert and oriented to person, place, and time. Psychiatric: Mood and Affect: Mood normal. Behavior: Behavior normal. Thought Content: Thought content normal. Judgment: Judgment normal. ASSESSMENT AND PLAN: No follow-ups on file. Problem List Items Addressed This Visit Anxiety and depression ([facility]/HCC) Current meds: klonopin, sertraline PHQ 9= ROBE 7= GERD (gastroesophageal reflux disease) - Primary Recommendations: freq small meals, nothing to eat or drink at least 2 hours prior to bed, limit caffeine, alcohol, as well as spicy foods Meds to limit or avoid if possible: NSAIDS Elevate HOB if possible Current meds: pantoprazole Migraine with aura Current therapy : topirimate, inderal Hyperlipidemia ([facility]) Statin therapy Check labs yearly and prn dose changes Relevant Orders Lipid panel Comprehensive metabolic panel 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 disease, without long-term current use of insulin ([facility]) Check blood sugars daily, notify if <70 [...] in carbohydrates, and simple sugars. Current meds: jardiance, metformin, statin a1c Relevant Orders POCT glycosylated hemoglobin (Hb A1C) docked device Urinalysis with reflex microscopic (clean catch) Microalbumin / creatinine, urine ratio Comprehensive metabolic panel Encounter for screening mammogram for malignant neoplasm of breast Relevant Orders Bilateral screening mammogram Colon cancer screening Colon cancer screening options were discussed with patient, as well as why colon cancer screening is indicated. Options are Colonoscopy: direct visualization, every 10 years (unless indicated more frequently), risks and benefits were discussed Cologuard: every 3 years, risks and benefits were discussed , contraindications were discussed (family hx of colon cancer, colon polyps) Patient has elected to: Other Visit Diagnoses Chronic kidney disease, stage 3a (HCC) (CMS/HCC) Relevant Orders CBC and differential Comprehensive metabolic panel Type 2 diabetes mellitus with diabetic chronic kidney disease ([facility]/HCC) Relevant Orders POCT glycosylated hemoglobin (Hb A1C) docked device Urinalysis with reflex microscopic (clean catch) Microalbumin / creatinine, urine ratio Comprehensive metabolic panel Associated Problem(s): Colon cancer screening Colon cancer screening options were discussed with patient, as well as why colon cancer screening is indicated. Recommend colonoscopy: concern over the cost of this Associated Problem(s): Migraine with aura Current therapy : topirimate, inderal Associated Problem(s): Hyperlipidemia ([facility]/HCC) Statin therapy Check labs yearly and prn dose changes Associated Problem(s): Anxiety and depression ([facility]/HCC) Current meds: klonopin, sertraline PHQ 9=16 ROBE 7=13 Associated Problem(s): 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 disease, without long-term current use of insulin ([facility]/HCC) Check blood sugars daily, notify if <70 [...] simple sugars. Current meds: metformin, statin a1c Associated Problem(s): GERD (gastroesophageal reflux disease) Recommendations: freq small meals, nothing to eat or drink at least 2 hours prior to bed, limit caffeine, alcohol, as well as spicy foods Meds to limit or avoid if possible: NSAIDS Elevate HOB if possible Current meds: pantoprazole documented in this encounter [facility] 05-22-2024 Instructions Lola Babin NP - 05/22/2024 2:20 PM EDT Check labs Mammogram and cervical cancer screening: through [facility] Unsure what to do at this time about colonoscopy documented in this encounter [facility] 01-31-2024 History of Present illness Narrative Associated Problem(s): Anemia Will order Anemia panel today. Recheck labs in 3 months. Associated Problem(s): 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 disease, without long-term current use of insulin ([facility]) Most recent labs: hemoglobin A1C 7.8% Checks [...] persistent hypoglycemia/hyperglycemia on home glucose monitoring noted. Images from the original note were not included. Subjective Patient ID: Kathy Schroeder is a 63 y.o. female who presents for No chief complaint on file.. HPI DMII: Most recent labs: hemoglobin A1C 7.8% Checks [...] persistent hypoglycemia/hyperglycemia on home glucose monitoring noted. Education: Check blood sugars daily, notify if <70 [...] diet low in carbohydrates, and simple sugars. Discussed labs in thorough detail with patient. Provided opportunity for questions and answered questions. Will order Anemia panel today. Recheck labs in 3 months. Review of Systems Constitutional: Negative for activity change, appetite change, chills, diaphoresis, fatigue, fever and unexpected weight change. HENT: Negative for congestion, ear pain, rhinorrhea, sinus pressure, sinus pain, sneezing, sore throat, trouble swallowing and voice change. Eyes: Negative for visual disturbance. Respiratory: Negative for cough, chest tightness, shortness of breath and wheezing. Cardiovascular: Negative for chest pain, palpitations and leg swelling. Gastrointestinal: Negative for abdominal distention, abdominal pain, blood in stool, constipation, diarrhea and vomiting. Genitourinary: Negative for decreased urine volume, dysuria, flank pain, frequency, hematuria and urgency. Musculoskeletal: Negative for arthralgias, gait problem, joint swelling and myalgias. Skin: Negative for rash. Neurological: Negative for dizziness, tremors, syncope, weakness, light-headedness and headaches. Psychiatric/Behavioral: Negative for decreased concentration and suicidal ideas. The patient is not nervous/anxious. Hematological: Does not bruise/bleed easily. Endocrine: Negative for cold intolerance, heat intolerance, polydipsia, polyphagia and polyuria. Objective Physical Exam Vitals reviewed. Constitutional: Appearance: Normal appearance. HENT: Head: Normocephalic and atraumatic. Right Ear: Tympanic membrane normal. Left Ear: Tympanic membrane normal. Nose: Nose normal. Mouth/Throat: Mouth: Mucous membranes are moist. Pharynx: Oropharynx is clear. Eyes: Pupils: Pupils are equal, round, and reactive to light. Cardiovascular: Rate and Rhythm: Normal rate and regular rhythm. Pulses: Normal pulses. Heart sounds: Normal heart sounds. Pulmonary: Effort: Pulmonary effort is normal. Breath sounds: Normal breath sounds. Abdominal: General: Abdomen is flat. Bowel sounds are normal. Palpations: Abdomen is soft. Musculoskeletal: General: Normal range of motion. Cervical back: Normal range of motion. Skin: General: Skin is warm and dry. Capillary Refill: Capillary refill takes less than 2 seconds. Neurological: General: No focal deficit present. Mental Status: She is alert and oriented to person, place, and time. Psychiatric: Mood and Affect: Mood normal. Behavior: Behavior normal. Assessment/Plan Problem List Items Addressed This Visit RESOLVED: History of prediabetes - Primary 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 disease, without long-term current use of insulin ([facility]) Most recent labs: hemoglobin A1C 7.8% Checks [...] persistent hypoglycemia/hyperglycemia on home glucose monitoring noted. Relevant Medications empagliflozin (Jardiance) 10 MG metFORMIN XR (Glucophage-XR) 500 MG 24 hr tablet Other Relevant Orders Microalbumin / creatinine urine ratio Comprehensive metabolic panel Anemia Will order Anemia panel today. Recheck labs in 3 months. Relevant Orders CBC and differential Vitamin B12 Ferritin Iron + transferrin + TIBC documented in this encounter [facility] 01-31-2024 Instructions Shae Ford NP - 01/31/2024 3:00 PM EST Education: Check blood sugars daily, notify if <70 [...] diet low in carbohydrates, and simple sugars. documented in this encounter [facility] 12-06-2023 History of Present illness Narrative Associated Problem(s): Migraine with aura (CMS/HCC) Currently taking Inderal, Topamax and Zoloft. Uses imitrex as needed; Reports migraines have improved significantly since last visit while taking the Topamax. Pt reports she is also taking Magnesium supplements daily to aide with her migraine control. She feels this regimen is working very well. Beena reports she did see a neurologist when she lived in [place], but has not since she moved to the [place]. Does not have health insurance at this time, wants to hold off on neurology referral until she has insurance. Continue current regimen.. Associated Problem(s): Fatigue Ongoing for some time. Did not have wellness labs completed in the past. Pt given information on Critical Access Testing to have wellness lab completed. Associated Problem(s): Adult wellness visit I have reviewed Ht/Wt/BMI, I have reviewed [...] GOAL 6-8 hours of sleep per night. . Images from the original note were not included. Subjective Patient ID: Kathy Schroeder is a 63 y.o. female who presents for Annual Exam. 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 Pt reports migraines have improved significantly since last visit while taking the Topamax. Pt reports she is also taking Magnesium supplements daily to aide with her migraine control. She feels this regimen is working very well. Beena reports she did see a neurologist when she lived in [place], but has not since she moved to the [place]. Fatigue: Ongoing for some time. Did not have wellness labs completed in the past.Gave pt information on Critical Access Testing to have wellness lab completed. [place] state she would like to get established with an MARKER MACHINE ATTENDANT in the area. Provided pt with information of MARKER MACHINE ATTENDANT's in the area. Review of Systems Constitutional: Negative for activity change, appetite change, chills, diaphoresis, fatigue, fever and unexpected weight change. HENT: Negative for congestion, ear pain, rhinorrhea, sinus pressure, sinus pain, sneezing, sore throat, trouble swallowing and voice change. Eyes: Negative for visual disturbance. Respiratory: Negative for cough, chest tightness, shortness of breath and wheezing. Cardiovascular: Negative for chest pain, palpitations and leg swelling. Gastrointestinal: Negative for abdominal distention, abdominal pain, blood in stool, constipation, diarrhea and vomiting. Genitourinary: Negative for decreased urine volume, dysuria, flank pain, frequency, hematuria and urgency. Musculoskeletal: Negative for arthralgias, gait problem, joint swelling and myalgias. Skin: Negative for rash. Neurological: Positive for numbness and headaches. Negative for dizziness, tremors, syncope, weakness and light-headedness. Psychiatric/Behavioral: Negative for decreased concentration and suicidal ideas. The patient is not nervous/anxious. Hematological: Does not bruise/bleed easily. Endocrine: Negative for cold intolerance, heat intolerance, polydipsia, polyphagia and polyuria. Objective Physical Exam Vitals reviewed. Constitutional: Appearance: Normal appearance. HENT: Head: Normocephalic and atraumatic. Right Ear: Tympanic membrane normal. Left Ear: Tympanic membrane normal. Nose: Nose normal. Mouth/Throat: Mouth: Mucous membranes are moist. Pharynx: Oropharynx is clear. Eyes: Pupils: Pupils are equal, round, and reactive to light. Cardiovascular: Rate and Rhythm: Normal rate and regular rhythm. Pulses: Normal pulses. Heart sounds: Normal heart sounds. Pulmonary: Effort: Pulmonary effort is normal. Breath sounds: Normal breath sounds. Abdominal: General: Abdomen is flat. Bowel sounds are normal. Palpations: Abdomen is soft. Musculoskeletal: General: Normal range of motion. Cervical back: Normal range of motion. Skin: General: Skin is warm and dry. Capillary Refill: Capillary refill takes less than 2 seconds. Neurological: General: No focal deficit present. Mental Status: She is alert and oriented to person, place, and time. Psychiatric: Mood and Affect: Mood normal. Behavior: Behavior normal. Assessment/Plan Problem List Items Addressed This Visit Anxiety and depression (CMS/HCC) Relevant Medications clonazePAM (KlonoPIN) 1 MG tablet Migraine with aura (CMS/HCC) Currently taking Inderal, Topamax and Zoloft. Uses imitrex as needed; Reports migraines have improved significantly since last visit while taking the Topamax. Pt reports she is also taking Magnesium supplements daily to aide with her migraine control. She feels this regimen is working very well. Beena reports she did see a neurologist when she lived in [place], but has not since she moved to the [facility]. Does not have health insurance at this time, wants to hold off on neurology referral until she has insurance. Continue current regimen.. Relevant Medications SUMAtriptan (Imitrex) 100 MG tablet Adult wellness visit - Primary I have reviewed Ht/Wt/BMI, I have reviewed [...] GOAL 6-8 hours of sleep per night. Other Visit Diagnoses Seasonal allergies Relevant Medications fluticasone (Flonase) 50 MCG/ACT nasal spray documented in this encounter [facility] 12-06-2023 Instructions Shae Ford NP - 12/06/2023 3:30 PM EDT FASTING labs ordered. Nothing to eat or drink for 12 hours prior to blood draw. Water and black coffee ok. Call any MARKER MACHINE ATTENDANT you would like to get appointment scheduled to establish care Diet: Eat three meals per day. Breakfast, lunch, and dinner. Avoid snacking. Avoid eating after 5/6 pm. Daily protein GOAL 35% of your intake; 30g per meal. Daily calorie GOAL 1,800-2,000 per day. Consider tracking your food intake on [employer] or [employer] Water: Increase water intake; GOAL [...] GOAL 6-8 hours of sleep per night. documented in this encounter [facility] Evaluation note No assessment inform ation available [facility] Work Phone: Evaluation note Diagnosis Generalized anxiety disorder (CMS/HCC) Generalized anxiety disorder documented in this encounter [facility] note* Diagnosis Anxiety and depression (CMS/HCC)- Primary Gastroesophageal reflux disease without esophagitis Esophageal reflux Migraine with aura and without status migrainosus, not intractable (CMS/HCC) Hyperlipidemia, unspecified hyperlipidemia type (CMS/HCC) History of prediabetes Generalized anxiety disorder (CMS/HCC) Generalized anxiety disorder Migraine with aura, not intractable, without status migrainosus (CMS/HCC) Acute bilateral low back pain without sciatica Adult wellness visit- Primary Migraine with aura and without status migrainosus, not intractable (CMS/HCC) Seasonal allergies Allergic rhinitis, cause unspecified Anxiety and depression (CMS/HCC) documented in this encounter [facility]* Diagnosis Anxiety and depression (CMS/HCC)- Primary Gastroesophageal reflux disease without esophagitis Esophageal reflux Migraine with aura and without status migrainosus, not intractable (CMS/HCC) Hyperlipidemia, unspecified hyperlipidemia type (CMS/HCC) History of prediabetes Generalized anxiety disorder (CMS/HCC) Generalized anxiety disorder Migraine with aura, not intractable, without status migrainosus (CMS/HCC) Acute bilateral low back pain without sciatica Adult wellness visit- Primary Migraine with aura and without status migrainosus, not intractable (CMS/HCC) Seasonal allergies Allergic rhinitis, cause unspecified Anxiety and depression (CMS/HCC) Anxiety and depression (CMS/HCC) documented [facility]* Diagnosis Anxiety and depression (CMS/HCC)- Primary Gastroesophageal reflux disease without esophagitis Esophageal reflux Migraine with aura and without status migrainosus, not intractable (CMS/HCC) Hyperlipidemia, unspecified hyperlipidemia type (CMS/HCC) History of prediabetes Generalized anxiety disorder (CMS/HCC) Generalized anxiety disorder Migraine with aura, not intractable, without status migrainosus (CMS/HCC) Acute bilateral low back pain without sciatica Adult wellness visit- Primary Migraine with aura and without status migrainosus, not intractable (CMS/HCC) Seasonal allergies Allergic rhinitis, cause unspecified Anxiety and depression (CMS/HCC) History of prediabetes documented [facility]* Diagnosis Anxiety and depression (CMS/HCC)- Primary Gastroesophageal reflux disease without esophagitis Esophageal reflux Migraine with aura and without status migrainosus, not intractable (CMS/HCC) Hyperlipidemia, unspecified hyperlipidemia type (CMS/HCC) History of prediabetes Generalized anxiety disorder (CMS/HCC) Generalized anxiety disorder Migraine with aura, not intractable, without status migrainosus (CMS/HCC) Acute bilateral low back pain without sciatica Adult wellness visit- Primary Migraine with aura and without status migrainosus, not intractable (CMS/HCC) Seasonal allergies Allergic rhinitis, cause unspecified Anxiety and depression (CMS/HCC) History of prediabetes- Primary 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 disease, without long-term current use of insulin ([facility]) Anemia, unspecified type documented in this encounter [facility]* Diagnosis Hyperlipidemia, unspecified (CMS/HCC) documented in this encounter [facility]* Diagnosis Anxiety and depression (CMS/HCC)- Primary Gastroesophageal reflux disease without esophagitis Esophageal reflux Migraine with aura and without status migrainosus, not intractable (CMS/HCC) Hyperlipidemia, unspecified hyperlipidemia type (CMS/HCC) History of prediabetes Generalized anxiety disorder (CMS/HCC) Generalized anxiety disorder Migraine with aura, not intractable, without status migrainosus (CMS/HCC) Acute bilateral low back pain without sciatica Adult wellness visit- Primary Migraine with aura and without status migrainosus, not intractable ([facility]/HCC) Seasonal allergies Allergic rhinitis, cause unspecified Anxiety and depression ([facility]/HCC) History of prediabetes- Primary 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 disease, without long-term current use of insulin ([facility]/HCC) Anemia, unspecified type Migraine with aura and without status migrainosus, not intractable ([facility]/HCC) Gastroesophageal reflux disease without esophagitis Esophageal reflux documented in this encounter [facility]* Diagnosis Anxiety and depression ([facility]/HCC)- Primary Gastroesophageal reflux disease without esophagitis Esophageal reflux Migraine with aura and without status migrainosus, not intractable (CMS/HCC) Hyperlipidemia, unspecified hyperlipidemia type ([facility]/HCC) History of prediabetes Generalized anxiety disorder ([facility]/HCC) Generalized anxiety disorder Migraine with aura, not intractable, without status migrainosus ([facility]/HCC) Acute bilateral low back pain without sciatica Adult wellness visit- Primary Migraine with aura and without status migrainosus, not intractable ([facility]/HCC) Seasonal allergies Allergic rhinitis, cause unspecified Anxiety and depression ([facility]/HCC) History of prediabetes- Primary 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 disease, without long-term current use of insulin ([facility]/HCC) Anemia, unspecified type Migraine with aura, not intractable, without status migrainosus (CMS/HCC) documented in this encounter [facility] HealthcareEvaluation note* Diagnosis Anxiety and depression (CMS/HCC)- Primary Gastroesophageal reflux disease without esophagitis Esophageal reflux Migraine with aura and without status migrainosus, not intractable (CMS/HCC) Hyperlipidemia, unspecified hyperlipidemia type (CMS/HCC) History of prediabetes Generalized anxiety disorder (CMS/HCC) Generalized anxiety disorder Migraine with aura, not intractable, without status migrainosus (CMS/HCC) Acute bilateral low back pain without sciatica Adult wellness visit- Primary Migraine with aura and without status migrainosus, not intractable (CMS/HCC) Seasonal allergies Allergic rhinitis, cause unspecified Anxiety and depression (CMS/HCC) History of prediabetes- Primary 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 disease, without long-term current use of insulin (CMS/HCC) Anemia, unspecified type 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 disease, without long-term current use of insulin (CMS/HCC)- Primary Chronic kidney disease, stage 3a (HCC) (CMS/HCC) Type 2 diabetes mellitus with diabetic chronic kidney disease (CMS/HCC) Gastroesophageal reflux disease without esophagitis Esophageal reflux Anxiety and depression (CMS/HCC) Mixed hyperlipidemia (CMS/HCC) Mixed hyperlipidemia Migraine with aura and without status migrainosus, not intractable (CMS/HCC) Encounter for screening mammogram for malignant neoplasm of breast Colon cancer screening Special screening for malignant neoplasms, colon Pelvic pain documented in this encounter [facility]* Diagnosis Anxiety and depression (CMS/HCC)- Primary Gastroesophageal reflux disease without esophagitis Esophageal reflux Migraine with aura and without status migrainosus, not intractable (CMS/HCC) Hyperlipidemia, unspecified hyperlipidemia type (CMS/HCC) History of prediabetes Generalized anxiety disorder (CMS/HCC) Generalized anxiety disorder Migraine with aura, not intractable, without status migrainosus (CMS/HCC) Acute bilateral low back pain without sciatica Adult wellness visit- Primary Migraine with aura and without status migrainosus, not intractable (CMS/HCC) Seasonal allergies Allergic rhinitis, cause unspecified Anxiety and depression (CMS/HCC) History of prediabetes- Primary 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 disease, without long-term current use of insulin (CMS/HCC) Anemia, unspecified type 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 disease, without long-term current use of insulin (CMS/HCC)- Primary Chronic kidney disease, stage 3a (HCC) (CMS/HCC) Type 2 diabetes mellitus with diabetic chronic kidney disease (CMS/HCC) Gastroesophageal reflux disease without esophagitis Esophageal reflux Anxiety and depression (CMS/HCC) Mixed hyperlipidemia (CMS/HCC) Mixed hyperlipidemia Migraine with aura and without status migrainosus, not intractable (CMS/HCC) Encounter for screening mammogram for malignant neoplasm of breast Colon cancer screening Special screening for malignant neoplasms, colon Pelvic pain Anxiety and depression (CMS/HCC) Generalized anxiety disorder (CMS/HCC) Generalized anxiety disorder documented in this encounter [facility]* Diagnosis Anxiety and depression (CMS/HCC)- Primary Gastroesophageal reflux disease without esophagitis Esophageal reflux Migraine with aura and without status migrainosus, not intractable (CMS/HCC) Hyperlipidemia, unspecified hyperlipidemia type (CMS/HCC) History of prediabetes Generalized anxiety disorder (CMS/HCC) Generalized anxiety disorder Migraine with aura, not intractable, without status migrainosus (CMS/HCC) Acute bilateral low back pain without sciatica Adult wellness visit- Primary Migraine with aura and without status migrainosus, not intractable ([facility]/HCC) Seasonal allergies Allergic rhinitis, cause unspecified Anxiety and depression ([facility]/HCC) History of prediabetes- Primary 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 disease, without long-term current use of insulin (CMS/HCC) Anemia, unspecified type 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 disease, without long-term current use of insulin (CMS/HCC)- Primary Chronic kidney disease, stage 3a (HCC) (CMS/HCC) Type 2 diabetes mellitus with diabetic chronic kidney disease (CMS/HCC) Gastroesophageal reflux disease without esophagitis Esophageal reflux Anxiety and depression (CMS/HCC) Mixed hyperlipidemia (CMS/HCC) Mixed hyperlipidemia Migraine with aura and without status migrainosus, not intractable (CMS/HCC) Encounter for screening mammogram for malignant neoplasm of breast Colon cancer screening Special screening for malignant neoplasms, colon Pelvic pain Migraine with aura and without status migrainosus, not intractable (CMS/HCC) documented in this encounter [facility]* Diagnosis Anxiety and depression (CMS/HCC)- Primary Gastroesophageal reflux disease without esophagitis Esophageal reflux Migraine with aura and without status migrainosus, not intractable (CMS/HCC) Hyperlipidemia, unspecified hyperlipidemia type (CMS/HCC) History of prediabetes Generalized anxiety disorder (CMS/HCC) Generalized anxiety disorder Migraine with aura, not intractable, without status migrainosus (CMS/HCC) Acute bilateral low back pain without sciatica Adult wellness visit- Primary Migraine with aura and without status migrainosus, not intractable (CMS/HCC) Seasonal allergies Allergic rhinitis, cause unspecified Anxiety and depression (CMS/HCC) History of prediabetes- Primary 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 disease, without long-term current use of insulin (CMS/HCC) Anemia, unspecified type 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 disease, without long-term current use of insulin (CMS/HCC)- Primary Chronic kidney disease, stage 3a (HCC) (CMS/HCC) Type 2 diabetes mellitus with diabetic chronic kidney disease (CMS/HCC) Gastroesophageal reflux disease without esophagitis Esophageal reflux Anxiety and depression (CMS/HCC) Mixed hyperlipidemia (CMS/HCC) Mixed hyperlipidemia Migraine with aura and without status migrainosus, not intractable (CMS/HCC) Encounter for screening mammogram for malignant neoplasm of breast Colon cancer screening Special screening for malignant neoplasms, colon Pelvic pain Generalized anxiety disorder (CMS/HCC) Generalized anxiety disorder Migraine with aura, not intractable, without status migrainosus (CMS/HCC) documented in this encounter [facility] HealthcareEvaluation note* Diagnosis Anxiety and depression (CMS/HCC)- Primary Gastroesophageal reflux disease without esophagitis Esophageal reflux Migraine with aura and without status migrainosus, not intractable (CMS/HCC) Hyperlipidemia, unspecified hyperlipidemia type (CMS/HCC) History of prediabetes Generalized anxiety disorder (CMS/HCC) Generalized anxiety disorder Migraine with aura, not intractable, without status migrainosus (CMS/HCC) Acute bilateral low back pain without sciatica Adult wellness visit- Primary Migraine with aura and without status migrainosus, not intractable (CMS/HCC) Seasonal allergies Allergic rhinitis, cause unspecified Anxiety and depression (CMS/HCC) History of prediabetes- Primary 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 disease, without long-term current use of insulin (CMS/HCC) Anemia, unspecified type 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 disease, without long-term current use of insulin (CMS/HCC)- Primary Chronic kidney disease, stage 3a (HCC) (CMS/HCC) Type 2 diabetes mellitus with diabetic chronic kidney disease (CMS/HCC) Gastroesophageal reflux disease without esophagitis Esophageal reflux Anxiety and depression (CMS/HCC) Mixed hyperlipidemia (CMS/HCC) Mixed hyperlipidemia Migraine with aura and without status migrainosus, not intractable (CMS/HCC) Encounter for screening mammogram for malignant neoplasm of breast Colon cancer screening Special screening for malignant neoplasms, colon Pelvic pain Anxiety and depression (CMS/HCC) documented in this encounter [facility]* Diagnosis Anxiety and depression- Primary Gastroesophageal reflux disease without esophagitis Esophageal reflux Migraine with aura and without status migrainosus, not intractable Hyperlipidemia, unspecified hyperlipidemia type History of prediabetes Generalized anxiety disorder Generalized anxiety disorder Migraine with aura, not intractable, without status migrainosus Acute bilateral low back pain without sciatica Adult wellness visit- Primary Migraine with aura and without status migrainosus, not intractable Seasonal allergies Allergic rhinitis, cause unspecified Anxiety and depression History of prediabetes- Primary 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 disease, without long-term current use of insulin (HCC) Anemia, unspecified type 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 disease, without long-term current use of insulin (HCC)- Primary Chronic kidney disease, stage 3a (CMS-HCC) Type 2 diabetes mellitus with diabetic chronic kidney disease (HCC) Gastroesophageal reflux disease without esophagitis Esophageal reflux Anxiety and depression Mixed hyperlipidemia Mixed hyperlipidemia Migraine with aura and without status migrainosus, not intractable Encounter for screening mammogram for malignant neoplasm of breast Colon cancer screening Special screening for malignant neoplasms, colon Pelvic pain 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 disease, without long-term current use of insulin (HCC)- Primary Hyperlipidemia, unspecified Generalized anxiety disorder Generalized anxiety disorder Anxiety and depression documented in this encounter [facility] Summary Purpose Family History No Family History Records FoundNo Family History Records FoundNo Family History Records Found Advance Directives No Advanced Directives Records Found Advance Directive Response Recorded Date/ Time Advance Directives No October 6:33pm Chief Complaint and Reason for Visit Chief Complaint Med Refill med refill Additional Source Comments INFORMATION SOURCE (unrecogn ized section and content) DATE CREATED AUTHOR 03/29/2022 [facility] DATE CREATED AUTHOR AUTHOR'S ORGANIZ ATION 11/12/2022 [facility] DATE CREATED AUTHOR AUTHOR'S ORGANIZ ATION 08/16/2024 [facility] EPIC Care Teams (unrecognized sec tion and content) Team Status: Active Member Role Status Dates PHYSICIAN NO FAMILY Primary Care Provider Active Team Status: Inactive Member Role Status Dates PHYSICIAN NO FAMILY Primary Care Provider Active JHON Fuchs- Emergency Provider Active Team Status: Inactive Member Role Status Dates PHYSICIAN NO FAMILY Primary Care Provider Active Danish Dumont PA-C Emergency Provider Active Mobile Home Set Up Person Relationship Specialty Start Date End Date Oliver Mcghee MD [address] [place] [address] PCP - General Family Medicine 11/02/23 Shae Ford NP [address] [place] [address] Nurse Practitioner Family Medicine 11/02/23 Mobile Home Set Up Person Relationship Specialty Start Date End Date Oliver Mcghee MD [address] [place] [phone] PCP - General Family Medicine 11/02/23 Shae Ford NP [address] [place] [address] Nurse Practitioner Family Medicine 11/02/23 Mobile Home Set Up Person Relationship Specialty Start Date End Date Oliver Mcghee MD [address] [place] [address] PCP - General Family Medicine 11/02/23 Shae Ford NP [address] [place] [address] Nurse Practitioner Family Medicine 11/02/23 Mobile Home Set Up Person Relationship Specialty Start Date End Date Unallocated, Bruce Stevens MD [address] [facility] [place] [address] PCP - General Family Medicine 12/14/23 Shae Ford NP [address] [place] [address] Nurse Practitioner Family Medicine 11/02/23 Mobile Home Set Up Person Relationship Specialty Start Date End Date Oliver Mcghee MD [address] [place] [phone] PCP - General Family Medicine 12/23/23 Shae Ford NP [address] [place] [address] Nurse Practitioner Family Medicine 11/02/23 Mobile Home Set Up Person Relationship Specialty Start Date End Date Oliver Mcghee MD [address] [place] [phone] PCP - General Family Medicine 12/23/23 Shae Ford NP [address] [place] [address] Nurse Practitioner Family Medicine 11/02/23 Mobile Home Set Up Person Relationship Specialty Start Date End Date Shaikh Tavera MD PCP - General Internal Medicine 11/22/22 Mobile Home Set Up Person Relationship Specialty Start Date End Date Oliver Mcghee MD [address] [place] [phone] PCP - General Family Medicine 12/23/23 Shae Ford NP [address] [place] [address] Nurse Practitioner Family Medicine 11/02/23 Mobile Home Set Up Person Relationship Specialty Start Date End Date Oliver Mcghee MD [address] [place] [phone] PCP - General Family Medicine 12/23/23 Shae Ford NP [address] [place] [address] Nurse Practitioner Family Medicine 11/02/23 Mobile Home Set Up Person Relationship Specialty Start Date End Date Oliver Mcghee MD [address] [place] [phone] PCP - General Family Medicine 12/23/23 Shae Ford NP Nurse Practitioner Family Medicine 11/02/23 Mobile Home Set Up Person Relationship Specialty Start Date End Date Oliver Mcghee MD [address] [place] [phone] PCP - General Family Medicine 12/23/23 hSae Ford NP Nurse Practitioner Family Medicine 11/02/23 Mobile Home Set Up Person Relationship Specialty Start Date End Date Oliver Mcghee MD [address] [place] [phone] PCP - General Family Medicine 12/23/23 Shae Ford NP Nurse Practitioner Family Medicine 11/02/23 Citlaly Arellano MA Family Medicine 05/23/24 Mobile Home Set Up Person Relationship Specialty Start Date End Date Oliver Mcghee MD [address] [place] [phone] PCP - General Family Medicine 12/23/23 Shae Ford NP Nurse Practitioner Family Medicine 11/02/23 Citlaly Arellano MA Family Medicine 05/23/24 Mobile Home Set Up Person Relationship Specialty Start Date End Date Oliver Mcghee MD [address] [place] [phone] PCP - General Family Medicine 12/23/23 Shae Ford NP Nurse Practitioner Family Medicine 11/02/23 Citlaly Arellano MA Family Medicine 05/23/24 Mobile Home Set Up Person Relationship Specialty Start Date End Date Oliver Mcghee MD [address] [place] [phone] PCP - General Family Medicine 12/23/23 Shae Ford NP Nurse Practitioner Family Medicine 11/02/23 Citlaly Arellano MA [address] [place] [address] Family Medicine 05/23/24 Mobile Home Set Up Person Relationship Specialty Start Date End Date Oliver Mcghee MD [address] [phone] PCP - General Family Medicine 12/23/23 Shae Ford NP Nurse Practitioner Family Medicine 11/02/23 Citlaly Arellano [place] [address] [place] [address] Family Medicine 05/23/24 Goals (unrecognized section and content) Goals may be documented in a n alternate section Reason for Visit (unrecogniz ed section and content) Reason Onset Date Comments Med Refill 11/24/2023 Reason Comments Annual Exam Reason Onset Date Comments Med Refill 12/14/2023 Reason Onset Date Comments Med Refill 12/23/2023 Reason Onset Date Comments Med Refill 11/01/2023 Reason Onset Date Comments Med Refill 03/01/2024 Reason Onset Date Comments Med Refill 2024 Reason Comments Med Refill Reason Onset Date Comments Med Refill 06/08/2024 Reason Onset Date Comments Med Refill 06/28/2024 Reason Comments Diabetes FOR RECORDS PERTAINING TO PATIENTS WHO ARE OR HAVE BEEN ENROLLED IN A CHEMICAL DEPENDENCY/SUBSTANCEABUSE PROGRAM, SOME INFORMATION MAY BE OMITTED. This clinical summary was aggregated from multiple sources. Caution should be exercised in using it in the provision of clinical care. This summary normalizes information from multiple sources, and as a consequence, information in this document may materially change the coding, format and clinical context of patient data. In addition, data may be omitted in some cases. CLINICAL DECISIONS SHOULD BE BASED ON THE PRIMARY CLINICAL RECORDS. [employer] provides no warranty or guarantee of the accuracy or completeness of information in this document.
[2024-08-23] MEDS: OFLOXACIN 0.3% OP SOL 100 DROP/5 ML BOTTLE OP (22:23)
== END 2024-08-23 22:26 | disposition home or self-care (01) ==
PROVIDERS: Emergency Provider Emergency Medicine
DX: H10.89 Other conjunctivitis (principal)
CPT/HCPCS: 99283

== ENCOUNTER 2025-02-10 12:30 | Emergency (ER) | payer SELFPAY ==
[2025-02-10 12:45] VITALS: BP 94/77; PULSE 78; TEMP 36.9; O2SAT 98; BMI 28.3
--- OUTSIDE RECORDS SUMMARY | 2025-02-10 12:55 | XMS_ITS | Clinical Summary ---
Author Organization [facility] Address [address] [place] [address] Care Team Providers Care Clinical Field Specialist Name Role Phone Shae Ford RADAR ENGINEER Unavailable [phone] Oliver Mcghee MD Primary Care Provider [phone] Allergies No known active allergies Medications MedicationSigDispense QuantityRefillsLast FilledStart DateEnd DateStatus fluticasone (Flonase) 50 MCG/ACT nasal spray Indications:Seasonal allergiesAdminister 1 spray into each nostril Daily Shake gently. Before first use, prime pump. After use, clean tip and replace cap. 16 g 4Active topiramate (Topamax) 100 MG tablet Indications:Migraine with aura, not intractable, without status migrainosusTake 1 tablet (100 mg) by mouth every 12 (twelve) hours 180 tablet 5Active atorvastatin (Lipitor) 20 MG tablet Indications:Hyperlipidemia, unspecifiedTake 1 tablet (20 mg) by mouth at bedtime 90 tablet 5Active sertraline (Zoloft) 100 MG tablet Indications:Generalized anxiety disorderTake 1 tablet (100 mg) by mouth Daily 90 tablet 5Active clonazePAM (KlonoPIN) 1 MG tablet Indications:Anxiety and depressionTake 1 tablet (1 mg) by mouth 2 (two) times a day as needed for anxiety 45 tablet 5Active metFORMIN XR (Glucophage-XR) 500 MG 24 hr tablet Indications: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 disease, without long-term current use of insulin (HCC)Take 1 tablet (500 mg) by mouth in the morning and 1 tablet (500 mg) in the evening. Take before meals. Do not crush, chew, or split. 180 tablet 5Active propranolol (Inderal) 40 MG tablet Indications:Migraine with aura and without status migrainosus, not intractable Take 1 tablet (40 mg) by mouth in the morning and 1 tablet (40 mg) before bedtime. 180 tablet 5Active SUMAtriptan (Imitrex) 100 MG tablet Indications:Migraine with aura and without status migrainosus, not intractable Take 1 tablet (100 mg) by mouth 1 (one) time if needed for migraine Take 1 pill at onset of migraine headache, repeat in 2 hours if needed. No more than 2 pills in 24 hours. No more than twice a week 9 tablet 5Active pantoprazole (ProtoNix) 40 MG EC tablet Indications:Gastroesophageal reflux disease without esophagitisTake 1 tablet (40 mg) by mouth in the morning. Take before meals. 90 tablet 5Active Active Problems ProblemNoted DateDiagnosed DateEncounter for screening mammogram for malignant neoplasm of myrwhy0905/22/2024 Assessment & Plan (05/22/2024 5:21 PM EDT): Perhaps can be done with [facility] Colon cancer /31/2025 Assessment & Plan (05/22/2024 5:21 PM EDT): Colon cancer screening options were discussed with patient, as well as why colon cancer screening is indicated. Recommend colonoscopy: concern over the cost of this Pelvic pain05/22/2024 Assessment & Plan (05/22/2024 5:19 PM EDT): Hx of possible ovary mass when was in [place], does have some intermittent pain Will check pelvic US, but does question about the cost, pt does not have insurance She is also in need of cervical cancer screening I did speak to my pt respiratory care specialist Citlaly to see if SS can be of help We can also go through [facility] for evaluation for both mammogram and cervical cancer screening 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 disease, without long-term current use of jtndomr8801/31/2024 Assessment & Plan (08/15/2024 1:04 PM EDT): [...] persistent hypoglycemia/hyperglycemia on home glucose monitoring noted. Aafpaa3201/31/2024 Assessment & Plan (01/31/2024 3:34 PM EST): Will order Anemia panel today. Recheck labs in 3 months. Adult wellness visit12/06/2023 Assessment & Plan (12/06/2023 4:08 PM EDT): I have reviewed Ht/Wt/BMI, I have reviewed recommended vaccines for patient's age, as well as all recommended screenings I have reviewed available care everywhere notes as well. I have recommended eating a balanced diet,as well as activity as chronic conditions allow It is recommended that the patient have a yearly eye exam, as well as twice a year dental exams Fu in this office for wellness on a yearly basis Diet: Eat three meals per day. Breakfast, lunch, and dinner. Avoid snacking. Avoid eating after 5/6pm. Daily protein GOAL 35% of your intake; 30g per meal. Daily calorie GOAL 1,800-2,000 per day. Consider tracking your food intake on [employer]ck[employer]Pal or LoseIt Water: Increase water intake; GOAL [...] hours of sleep per night. Anxiety and gfdcvvwejb39/29/2024 Assessment & Plan (08/15/2024 1:05 PM EDT): Current meds: klonopin, sertraline OARRS reviewed, will trial a decrease klonopin to 45 tabs daily Fu in 3 months Assessment & Plan (05/22/2024 2:52 PM EDT): Current meds: klonopin, sertraline PHQ 9=16 ROBE 7=13 GERD (gastroesophageal reflux disease)03/22/2023 Assessment & Plan (05/22/2024 7:01 AM EDT): Recommendations: freq small meals, nothing to eat or drink at least 2 hours prior to bed, limit caffeine, alcohol, as well as spicy foods Meds to limit or avoid if possible: NSAIDS Elevate HOB if possible Current meds: pantoprazole Migraine with aura03/22/2023 Assessment & Plan (05/22/2024 7:04 AM EDT): Current therapy : topirimate, inderal Assessment & Plan (12/06/2023 6:54 PM EDT): Currently taking Inderal, Topamax and Zoloft. Uses imitrex as needed; Reports migraines have improved significantly since last visit while taking the Topamax. Pt fariba is also taking Magnesium supplements daily to aide with her migraine control. She feels this regimen is working very well. Beena reports she did see a neurologist when she lived [place], [facility] Does not have [facility] at this time, wants to hold off on neurology referral until she has insurance. Continue current regimen.. Assessment & Plan (03/22/2023 2:06 PM EST): Patient on Inderal, Topamax and Zoloft. Uses imitrex as needed She ends up using all of her Imitrex before a month is up. She is using daily OTC medication from [facility] too - she is unsure of what. I suspect she has medication overuse PEREZ and I tried to explain to her that this is more likely the reason for her daily headaches. She unfortunately does not have health insurance and there are limited options because of health care cost. Otherwise, a CGRP would have been a good option for her migraine PEREZ. Vyoiggcnjxkaks59/29/2024 Assessment & Plan (05/22/2024 7:03 AM EDT): Statin therapy Check labs yearly and prn dose changes Assessment & Plan (03/22/2023 2:07 PM EST): Patient was started on Lipitor 20 mg. Need to repeat lipid panel to make sure its working for her. Acute bilateral low back pain without ohdfmmza33/29/2024 Assessment & Plan (03/22/2023 2:13 PM EST): [...] to have wellness lab completed. Resolved Problems ProblemNoted DateDiagnosed DateResolved DateHistory of stblxcwhtwu29/29/2024 01/31/2024 Assessment & Plan (03/22/2023 2:00 PM EST): A1C 6.3 01/14 --> on metformin. C/w same. Encouraged lifestyle measures and modifications. Immunizations ImmunizationAdministration DatesNext DueInfluenza, injectable, quadrivalent, preservative free01/29/2020 Family History Medical HistoryRelationNameCommentsDiabetesMotherRelationNameStatusComments Mother Social History Tobacco UseTypesPacks/DayYears UsedDateSmoking Tobacco: NeverSmokeless Tobacco: Never Tobacco Cessation:Counseling Given: Not Answered Alcohol UseStandard Drinks/WeekCommentsNot Currently0 (1 standard drink = 0.6 oz pure alcohol)CommentsNoSex and Gender InformationValueDate RecordedSex Assigned at BirthNot on fileLegal EtuJtpyzv99/06/2023 4:40 PM EDTGender Identity Not on fileSexual OrientationNot on file Last Filed Vital Signs Vital SignReadingTime TakenCommentsBlood Esqencas113/8406 11:35 AM EDT Jrfmh548608/15/2024 11:35 AM UQVPsokwcbmstz64.4 ??C (97.5 ??F)08/15/2024 11:35 AM EDTRespiratory Otdp597008/15/2024 11:35 AM EDTOxygen Iwbggchnop20%08/15/2024 11:35 AM EDTInhaled Oxygen Concentration--Eokujl09 kg (174 lb 3.2 oz)08/15/2024 11:35 AM IPBRnfsxz095 cm (5' 3 )01/31/2024 3:02 PM ESTBody Mass Index30.8601/31/2024 3:02 PM EST Plan of Treatment Not on file Care Teams Team MemberRelationshipSpecialtyStart DateEnd Date Oliver Mcghee MD PCP - GeneralFamily Scpakymg67/31/24 Shae Ford NP Nurse PractitionerFamily Medicine11/02/23
--- OUTSIDE RECORDS SUMMARY | 2025-02-10 12:55 | XMS_ITS | Patient Health Record ---
Author Organization [facility] Address [address] [place] [address] Care Team Providers Care Director Ship Name Role Phone NO, PCP Primary Care Provider Unavailabl e Reason For Referral No Information Plan Of Treatment No Information Insurance Providers Payer Name Payer Address Payer Phone Subscriber Number Group Number Insured Name Patient Relationship to Insured Coverage Start Date Coverage End Date PROMPT PAY/Bill to Patient SHEA KIMelf - patient is the insured
--- OUTSIDE RECORDS SUMMARY | 2025-02-10 12:55 | XMS_ITS | Clinical Summary ---
Author Organization [employer] [facility] Address [id number] [address] [place] [address] Care Team Providers Care Telecom Network Manager Name Role Phone Ramesh Serrano DO Primary Care Provider [phone] Allergies No known active allergies Medications MedicationSigDispense QuantityRefillsLast FilledStart DateEnd DateStatus metFORMIN (GLUCOPHAGE) 500 mg tablet Take 1 tablet (500 mg total) by mouth in the morning and 1 tablet (500 mg total) before bedtime.Active ibuprofen (ADVIL,MOTRIN) 600 mg tablet Take 1 tablet (600 mg total) by mouth every 6 (six) hours as needed for pain. 30 tablet 06/27/2020ctive Additional Information Patient not taking.Reported on 09/18/2024 lidocaine (LIDODERM) 5 % Place 1 patch on the skin daily. Remove & Discard patch within 12 hours or as directed by 15 patch 06/27/2020ctive Additional Information Patient not taking.Reported on 09/18/2024 propranoloL (INDERAL) 40 mg tablet Take 1 tablet (40 mg total) by mouth in the morning and 1 tablet (40 mg total) before bedtime.5Active topiramate (TOPAMAX) 100 mg tablet Take 1 tablet (100 mg total) by mouth every 12 (twelve) hours.5Active clonazePAM (KlonoPIN) 1 mg tablet Take 1 tablet (1 mg total) by mouth 2 (two) times a day as needed for anxiety. Active pantoprazole (PROTONIX) 40 mg EC tablet Take 1 tablet (40 mg total) by mouth.5Active estradioL (ESTRACE) 0.01 % (0.1 mg/gram) vaginal cream Indications:Labia minora agglutinationApply pea size amount to fingertip and rub into vulva three times weekly 42.5 g 5Active metFORMIN XR (GLUCOPHAGE XR) 500 mg 24 hr tablet Take 1 tablet (500 mg total) by mouth daily with breakfast. Active Problems No known active problems Family History Medical HistoryRelationNameCommentsBreast cancerNeg HxColon cancerNeg HxOvarian cancerNeg HxUterine cancerNeg HxRelationNameStatusCommentsFatherDeceasedMother Social History Tobacco UseTypesPacks/DayYears UsedDateSmoking Tobacco: NeverSmokeless Tobacco: NeverAlcohol UseStandard Drinks/WeekCommentsNot Currently0 (1 standard drink = 0.6 oz pure alcohol)PHQ-2AnswerDate RecordedTotal Vqnzy5465Childcare AnswerDate HmjefysoSpbkbmlfeWifmopd30/23/2020EmploymentAnswerDate Recorded CnxzdhrmmeBdsdtwt98/23/2020Hunger ScreeningAnswerDate RecordedWithin the past 12 months we worried whether our food would run out before we got money to buy more.Never True09/18/2024Within the past 12 months the food we bought just didn't last and we didn't have money to get more.Never True09/18/2024Purpose - LifeAnswerDate RecordedPurpose and direction in desmNufylln83/11/2021 CommentsNoSex and Gender InformationValueDate RecordedSex Assigned at BirthNot on fileLegal VzuCojufc38/23/2020 2:19 PM EDTGender IdentityNot on fileSexual OrientationNot on file Last Filed Vital Signs Vital SignReadingTime TakenCommentsBlood Dwrbnsli055/7207 3:00 PM EDT Cjanc945306/27/2020 10:30 AM GBSRcivtucjexn64.7 ??C (98.1 ??F)06/27/2020 10:25 AM EDTRespiratory Qfvk644306/27/2020 10:30 AM EDTOxygen Roadlsxtrf42%06/27/2020 10:30 AM EDTInhaled Oxygen Concentration--Xgkwjg80.4 kg (172 lb 12.8 oz)09/18/2024 3:00 PM GIZQgdxlw566.5 cm (5' 2 )09/18/2024 3:00 PM EDTBody Mass Index31.61 09/18/2024 3:00 PM EDT Plan of Treatment Health MaintenanceDue DateLast DoneCommentsAdult BMI Follow Up Plan1980 DTaP,Tdap and Td Vaccines (1 - Tdap)1981Pap Smear1983Zoster (Shingles) Vaccine (1 of 2)2012COVID-19 Vaccine (3 - 2024- season) /, 07/18/2020Influenza Sdjlqvw60/08/2019Adult BMI Aksjhdwku14Depression Gnysmmfbq34Tobacco Jokzdwpsc29RSV ( or age 60+ yrs) (1 - 1-dose 75+ series)2037 Medical Devices Not on file Insurance Care Teams Team MemberRelationshipSpecialtyStart DateEnd Date Ramesh Serrano DO [address] [place], [place] [address] [address] PCP - GeneralFamily Medicine06/27/20
--- NOTE | 2025-02-10 13:03 | PC.NURSE ---
swelling to lower jaw left side, site presents like an abscess.
--- NOTE | 2025-02-10 13:07 | ED.GENADUL1 ---
HPI HPI - General Adult General Chief complaint: Dental/Oral Stated complaint: SORES IN MOUTH Time Seen by Provider: 02/10/25 12:36 Source: patient Mode of arrival: walk-in Limitations: no limitations History of Present Illness HPI narrative: 64-year-old female presents to the emergency department for a sore in her mouth. She has had this for few days. She has been using Anbesol on it. She does not have a dentist. No drainage or fever or difficulty breathing or swallowing. Related Data Home Medications ?Medication ?Instructions ?Recorded ?Confirmed clonazepam 1 mg tablet 1 mg PO DAILY PRN anxiety 02/10/25 02/10/25 metformin 500 mg tablet,extended 1,000 mg PO DAILY 02/10/25 02/10/25 release 24 hr omeprazole 40 mg capsule,delayed 40 mg PO DAILY 02/10/25 02/10/25 release propranolol 40 mg tablet 40 mg PO DAILY 02/10/25 02/10/25 sertraline 100 mg tablet 100 mg PO Q24H 02/10/25 02/10/25 topiramate 100 mg tablet 100 mg PO Q12H 02/10/25 02/10/25 Previous Rx's ?Medication ?Instructions ?Recorded acetaminophen 300 mg-codeine 30 mg 1 tab PO Q6H PRN pain 5 days #20 02/10/25 tablet tabs ibuprofen 800 mg tablet 800 mg PO Q8H PRN pain #20 tabs 02/10/25 penicillin V potassium 250 mg 250 mg PO QID 10 days #40 tabs 02/10/25 tablet Allergies Allergy/AdvReac Type Severity Reaction Status Date / Time No Known Drug Allergies Allergy Verified 02/10/25 12:45 Opioid HPI Opioid Management Most Recent Opioid Data: Last Pain Scale 10 Today, 12:45 Review of Systems ROS Narrative A ten point review of systems is negative except as noted above. PFSH PFSH Social History Little interest or pleasure in doing things: not at all Feeling down, depressed, or hopeless: not at all Exam Narrative Exam Narrative: Nurses note and vital signs reviewed General:The patient appears well and in no apparent distress.Patient is resting comfortably on cart. Skin:Warm, dry, no pallor noted.There is no rash noted. Head:Normocephalic, atraumatic Eye: Normal conjunctiva, no drainage Ears, Nose, Mouth, and Throat: oral mucosa is moist. Nares patent. Mild swelling along the left jaw area. No erythema or fluctuance. The floor of her mouth is not swollen. Many of her teeth are missing and she has an area of localized swelling on her left gingiva without bleeding or pus present. Cardiovascular:Regular Rate and Rhythm Respiratory:Patient is in no distress, no accessory muscle use Back:non-tender GI: Soft and nontender Musculoskeletal: The patient has no evidence of calf tenderness, no pitting edema, symmetrical pulses noted bilaterally Neurological: Awake and alert Psychiatric:Cooperative Constitutional Vital Signs, click to edit/add: Last Vital Signs Temp 98.5 F 02/10/25 12:45 Pulse 78 02/10/25 12:45 Resp 14 02/10/25 12:45 BP 94/77 02/10/25 12:45 Pulse Ox 98 02/10/25 12:45 O2 Del Method Room Air 02/10/25 12:45 Course Vital Signs Vital signs: Vital Signs Temperature 98.5 F 02/10/25 12:45 Pulse Rate 78 02/10/25 12:45 Respiratory Rate 14 02/10/25 12:45 Blood Pressure 94/77 02/10/25 12:45 Pulse Oximetry 98 02/10/25 12:45 Oxygen Delivery Method Room Air 02/10/25 12:45 Temperature 98.5 F 02/10/25 12:45 Pulse Rate 78 02/10/25 12:45 Respiratory Rate 14 02/10/25 12:45 Blood Pressure 94/77 02/10/25 12:45 Pulse Oximetry 98 02/10/25 12:45 Oxygen Delivery Method Room Air 02/10/25 12:45 Medical Decision Making [facility] Narrative Medical decision making narrative: My clinical impression is that she has a dental infection. She is prescribed penicillin and Tylenol 3 and ibuprofen and given dental referral list. Treatment diagnosis and follow-up were discussed with the patient. Differential Diagnosis Differential Diagnosis: Dental abscess, dental infection, dental caries Discharge Plan Discharge Chief Complaint: Dental/Oral Clinical Impression: Dental infection Patient Disposition: Home, Self-Care Time of Disposition Decision: 13:05 Condition: Good Mode of Transportation: Private Vehicle Prescriptions / Home Meds: New acetaminophen-codeine 300-30 mg tablet 1 tab PO Q6H PRN (Reason: pain) 5 Days Qty: 20 0RF penicillin V potassium 250 mg tablet 250 mg PO QID 10 Days Qty: 40 0RF ibuprofen 800 mg tablet 800 mg PO Q8H PRN (Reason: pain) Qty: 20 0RF No Action propranolol 40 mg tablet 40 mg PO DAILY metformin 500 mg tablet extended release 24 hr 1,000 mg PO DAILY topiramate 100 mg tablet 100 mg PO Q12H sertraline 100 mg tablet 100 mg PO Q24H clonazepam 1 mg tablet 1 mg PO DAILY PRN (Reason: anxiety) omeprazole 40 mg capsule,delayed release(DR/EC) 40 mg PO DAILY Print Language: Setswana Instructions: Dental Abscess (ED) Additional Instructions: Follow-up with dentistry Referrals: Lola Babin NP [Primary Care Provider, Family Practice] - 1 week
== END 2025-02-10 13:19 | disposition home or self-care (01) ==
PROVIDERS: Emergency Provider Emergency Medicine; PCP Nurse Practitioner
DX: K04.7 Periapical abscess without sinus (principal)
CPT/HCPCS: 99283